=== PATIENT | female | born 1970 | race Caucasian/White ===

== ENCOUNTER 2017-11-04 14:59 | Emergency (ER) | payer OTHER, MEDICAID, SELFPAY ==
[2017-11-04 15:08] VITALS: BP 132/102; PULSE 90; RESP 20; TEMP 36.5; O2SAT 100; BMI 24.7
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
== END 2017-11-04 16:08 | disposition home or self-care (01) ==
PROVIDERS: Emergency Provider Emergency Medicine; PCP Family Medicine
DX: S01.81XA Laceration without foreign body of other part of head, initial encounter (principal); V19 Pedal cycle rider injured in other and unspecified transport accidents
CPT/HCPCS: 12013; 70110; 99283

== ENCOUNTER 2018-09-22 15:09 | Emergency (ER) | payer OTHER, MEDICAID, SELFPAY ==
[2018-09-22 15:11] VITALS: BP 124/78; PULSE 95; RESP 21; TEMP 37.4; O2SAT 97; BMI 23.5
--- NOTE | 2018-09-22 15:17 | DI.RAD.S_ITS ---
PROCEDURE: XR ELBOW RT MIN 3V INDICATIONS: pain with movement TECHNIQUE: 3 views of the elbow were acquired. COMPARISON: None. FINDINGS: Bones: No fractures or dislocations. No suspicious bony lesions. No significant degenerative changes. Soft tissues: No elbow joint effusion. No suspicious soft tissue calcifications. IMPRESSION: No acute osseous abnormality of the right elbow. Dictated by: Naveen Wild M.D. on 09/22/2018 at 15:50 Approved by: Naveen Wild M.D. on 09/22/2018 at 15:53
--- NOTE | 2018-09-22 16:19 | ED.EXTPRO ---
HPI - Extremity Problem General Chief complaint: Extremity Problem,Nontraumatic Stated complaint: RT SHE PAIN Time Seen by Provider: 09/22/18 16:11 Source: patient and old records reviewed Mode of arrival: ambulatory Limitations: no limitations History of Present Illness HPI Narrative: This is a 48-year-old female who comes in with complaint of right elbow/shoulder pain. 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 She has a history of a rotator cuff injury about 15 years ago and states that she never actually did surgery although she was recommended 2. Patient states her pain has not been controlled with oral ibuprofen. Patient is not having any weakness, no tingling or numbness but has quite a bit of discomfort extending from the shoulder down the arm. Patient has not had any bruising or other skin color changes. No redness or swelling. she does not have any other injuries elsewhere. Related Data Home Medications Medication Instructions Recorded Confirmed ferrous gluconate #0 04/27/17 potassium chloride [Klor-Con 8] #0 04/27/17 Previous Rx's Medication Instructions Recorded meloxicam [Mobic] 7.5 mg PO BID #10 tab 09/22/18 Allergies Allergy/AdvReac Type Severity Reaction Status Date / Time morphine [MORPHINE] Allergy Unknown ITCHING Verified 09/22/18 16:39 Review of Systems Review of Systems ROS Unobtainable: All systems reviewed & are unremarkable except as noted in HPI and below Constitutional Denies chills and Denies fever(s) Cardiovascular Denies chest pain, Denies edema and Denies dyspnea Respiratory Denies chest congestion and Denies dyspnea Gastrointestinal Gastrointestinal: Denies nausea and Denies vomiting Musculoskeletal Reports as per HPI, Reports arthralgias (Right shoulder, elbow), Denies joint swelling, Reports limited range of motion (Second pain), Denies numbness, Denies stiffness and Denies tingling Integumentary/Breasts Denies erythema, Denies rash and Denies unusual bruising Neurologic Denies numbness and Denies tingling PFSH Social History Smoking Status: Current every day smoker Social History Smoking Status: Current every day smoker Exam Narrative Exam Narrative: GENERAL: Alert and oriented x three, well-nourished, well-appearing female. HEENT: Head normocephalic, atraumatic, EOMI, pupils reactive, face symmetric, moist mucous membranes NECK: Supple, full range of motion, no vertebral tenderness CARDIOVASCULAR: Regular rate and rhythm without murmurs, rubs or gallops. RESPIRATORY: Breath sounds equal bilaterally, no wheezes rales or rhonchi. ABDOMEN: Soft, nontender. Normoactive bowel sounds all 4 quadrants. No guarding or rebound, rigidity, no mass EXTREMITIES: Normal range of motion, no clubbing or edema. 2+ radial pulse multiple right. Patient does not have any clear bony tenderness. Patient does not have any swelling and right versus left extremity. 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 She has cap refill less than 2 seconds in all 5 fingers. No bruising, no erythema. She has full range of motion of her wrist and elbow. Patient has range of motion in her shoulder as well. She has some tenderness over the AC region of the shoulder. Patient does not have any warmth, erythema or redness. 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 Neurovascularly intact NEUROLOGICAL: Cranial nerves II through XII grossly intact. Moving all extremities SKIN: Warm, dry, no petechiae, no rashes or lesions. Initial Vital Signs Initial Vital Signs: Vital Signs Temperature 99.3 F 09/22/18 15:11 Pulse Rate 95 H 09/22/18 15:11 Respiratory Rate 21 09/22/18 15:11 Blood Pressure 124/78 09/22/18 15:11 Pulse Oximetry 97 09/22/18 15:11 Course Orders Ordered: ED Orders 09/22/18 15:17 XR elbow RT min 3V Stat Discontinued Medications Ketorolac Tromethamine (Toradol) 60 mg IM NOW ONE Stop: 09/22/18 16:30 Last Admin: 09/22/18 16:39 Dose: 30 mg Vital Signs - 8 hr 09/22/18 15:11 09/22/18 16:49 09/22/18 16:52 Temperature 99.3 F Pulse Rate 95 H 72 Pulse Rate [Right Radial] 72 Respiratory Rate 21 18 Blood Pressure 124/78 Blood Pressure [Left Arm] 127/72 Pulse Oximetry 97 98 MDM - Extremity (Nontraumatic) Imaging Data right elbow xray: Radiologist's impression: [address] [address] XRay Report Signed Patient: Dorothy Mayers LMR#: [id number] : 1970Acct:[id number] Age/Sex: 48 / FDate of Service: 09/22/18 Loc: ED Accession Number: [id number] Procedure: XR elbow RT min 3V Ordering Provider: Fernanda Ivey D.O. PROCEDURE: XR ELBOW RT MIN 3V INDICATIONS: pain with movement TECHNIQUE: 3 views of the elbow were acquired. COMPARISON: None. FINDINGS: Bones: No fractures or dislocations. No suspicious bony lesions. No significant degenerative changes. Soft tissues: No elbow joint effusion. No suspicious soft tissue calcifications. IMPRESSION: No acute osseous abnormality of the right elbow. Dictated by: Naveen Wild M.D. on 09/22/2018 at 15:50 Approved by: Naveen Wild M.D. on 09/22/2018 at 15:53 MDM Narrative Medical decision making narrative: Patient's x-ray of her right elbow is negative. Patient has some mild tenderness to the AC but she has normal physical exam. Discussed with patient initially she was asking for an x-ray because she is concerned about rotator cuff tear being re-injured but we discussed that an x-ray will not exclude this or give us any definitive information the patient then deferred x-ray. She does have follow-up with Orthopedic surgery. Patient and I discussed doing a sling for short period of time as well as NSAIDs. Has an ice and/or heat. Patient is comfortable with the plan. Discharge Plan Departure Patient Disposition: Home Clinical Impression: Arm pain, right Discharge Date/Time: 09/22/18 16:54 Interventions: ED Discharge Assessment Last Done: 09/22/18 16:52 Instructions: DI for Arm Pain Activity Restrictions/Additional Instructions: Follow-up with your orthopedic surgeon in the next week for recheck. Call for an appointment. If you are using the sling, you need to make sure that your continuing to move your shoulder through its range of motion several times daily or you can get frozen shoulder. You may continue Tylenol up to a 1000 mg every 8 hours as needed. You may take this with Mobic 1 tablet every 12 hours as needed for pain. Elevated affected body part to decrease swelling. OK to use ice pack on the affected body part. Use for 15-20 minutes each time, for 5-6x per day. If you develop worsening pain, numbness, tingling, discoloration of the affected body part, loosen sling, and either see your doctor for an urgent re-assessment, or return to the Emergency Department. Return to the Emergency Department for any new or worsening symptoms. Prescriptions: New meloxicam [Mobic] 7.5 mg tablet 7.5 mg PO BID Qty: 10 RF: 0 No Action potassium chloride [Klor-Con 8] 8 MEQ tablet extended release Qty: 0 RF: 0 ferrous gluconate 236 MG tablet Qty: 0 RF: 0 Referrals: Vidhi Anderson MD [Primary Care Provider] -
--- NOTE | 2018-09-22 16:38 | ED_ITS ---
HPI - Extremity Problem General Chief complaint: Extremity Problem,Nontraumatic Stated complaint: RT SHE PAIN Time Seen by Provider: 09/22/18 16:11 Source: patient and old records reviewed Mode of arrival: ambulatory Limitations: no limitations History of Present Illness HPI Narrative: This is a 48-year-old female who comes in with complaint of right elbow/shoulder pain. 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 She has a history of a rotator cuff injury about 15 years ago and states that she never actually did surgery although she was recommended 2. Patient states her pain has not been controlled with oral ibuprofen. Patient is not having any weakness, no tingling or numbness but has quite a bit of discomfort extending from the shoulder down the arm. Patient has not had any bruising or other skin color changes. No redness or swelling. she does not have any other injuries elsewhere. Related Data Home Medications Medication Instructions Recorded Confirmed ferrous gluconate #0 04/27/17 potassium chloride [Klor-Con 8] #0 04/27/17 Previous Rx's Medication Instructions Recorded meloxicam [Mobic] 7.5 mg PO BID #10 tab 09/22/18 Allergies Allergy/AdvReac Type Severity Reaction Status Date / Time morphine [MORPHINE] Allergy Unknown ITCHING Verified 09/22/18 16:39 Review of Systems Review of Systems ROS Unobtainable: All systems reviewed & are unremarkable except as noted in HPI and below Constitutional Denies chills and Denies fever(s) Cardiovascular Denies chest pain, Denies edema and Denies dyspnea Respiratory Denies chest congestion and Denies dyspnea Gastrointestinal Gastrointestinal: Denies nausea and Denies vomiting Musculoskeletal Reports as per HPI, Reports arthralgias (Right shoulder, elbow), Denies joint swelling, Reports limited range of motion (Second pain), Denies numbness, Denies stiffness and Denies tingling Integumentary/Breasts Denies erythema, Denies rash and Denies unusual bruising Neurologic Denies numbness and Denies tingling PFSH Social History Smoking Status: Current every day smoker Social History Smoking Status: Current every day smoker Exam Narrative Exam Narrative: GENERAL: Alert and oriented x three, well-nourished, well- appearing female. HEENT: Head normocephalic, atraumatic, EOMI, pupils reactive, face symmetric, moist mucous membranes NECK: Supple, full range of motion, no vertebral tenderness CARDIOVASCULAR: Regular rate and rhythm without murmurs, rubs or gallops. RESPIRATORY: Breath sounds equal bilaterally, no wheezes rales or rhonchi. ABDOMEN: Soft, nontender. Normoactive bowel sounds all 4 quadrants. No guarding or rebound, rigidity, no mass EXTREMITIES: Normal range of motion, no clubbing or edema. 2+ radial pulse multiple right. Patient does not have any clear bony tenderness. Patient does not have any swelling and right versus left extremity. 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 She has cap refill less than 2 seconds in all 5 fingers. No bruising, no erythema. She has full range of motion of her wrist and elbow. Patient has range of motion in her shoulder as well. She has some tenderness over the AC region of the shoulder. Patient does not have any warmth, erythema or redness. 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 Neurovascularly intact NEUROLOGICAL: Cranial nerves II through XII grossly intact. Moving all extremities SKIN: Warm, dry, no petechiae, no rashes or lesions. Initial Vital Signs Initial Vital Signs: Vital Signs Temperature 99.3 F 09/22/18 15:11 Pulse Rate 95 H 09/22/18 15:11 Respiratory Rate 21 09/22/18 15:11 Blood Pressure 124/78 09/22/18 15:11 Pulse Oximetry 97 09/22/18 15:11 Course Orders Ordered: ED Orders 09/22/18 15:17 XR elbow RT min 3V Stat Discontinued Medications Ketorolac Tromethamine (Toradol) 60 mg IM NOW ONE Stop: 09/22/18 16:30 Last Admin: 09/22/18 16:39 Dose: 30 mg Vital Signs - 8 hr 09/22/18 15:11 09/22/18 16:49 09/22/18 16:52 Temperature 99.3 F Pulse Rate 95 H 72 Pulse Rate [Right Radial] 72 Respiratory Rate 21 18 Blood Pressure 124/78 Blood Pressure [Left Arm] 127/72 Pulse Oximetry 97 98 MDM - Extremity (Nontraumatic) Imaging Data right elbow xray: Radiologist's impression: [address] [address] XRay Report Signed Patient: Dorothy Mayers LMR#: [id number] : 1970Acct:[id number] Age/Sex: 48 / FDate of Service: 09/22/18 Loc: ED Accession Number: [id number] Procedure: XR elbow RT min 3V Ordering Provider: Frenanda Ivey D.O. PROCEDURE: XR ELBOW RT MIN 3V INDICATIONS: pain with movement TECHNIQUE: 3 views of the elbow were acquired. COMPARISON: None. FINDINGS: Bones: No fractures or dislocations. No suspicious bony lesions. No significant degenerative changes. Soft tissues: No elbow joint effusion. No suspicious soft tissue calcifications. IMPRESSION: No acute osseous abnormality of the right elbow. Dictated by: Naveen Wild M.D. on 09/22/2018 at 15:50 Approved by: Naveen Wild M.D. on 09/22/2018 at 15:53 MDM Narrative Medical decision making narrative: Patient's x-ray of her right elbow is negative. Patient has some mild tenderness to the AC but she has normal physical exam. Discussed with patient initially she was asking for an x-ray because she is concerned about rotator cuff tear being re-injured but we discussed that an x-ray will not exclude this or give us any definitive information the patient then deferred x-ray. She does have follow-up with Orthopedic surgery. Patient and I discussed doing a sling for short period of time as well as NSAIDs. Has an ice and/or heat. Patient is comfortable with the plan. Discharge Plan Departure Patient Disposition: Home Clinical Impression: Arm pain, right Discharge Date/Time: 09/22/18 16:54 Interventions: ED Discharge Assessment Last Done: 09/22/18 16:52 Instructions: DI for Arm Pain Activity Restrictions/Additional Instructions: Follow-up with your orthopedic surgeon in the next week for recheck. Call for an appointment. If you are using the sling, you need to make sure that your continuing to move your shoulder through its range of motion several times daily or you can get frozen shoulder. You may continue Tylenol up to a 1000 mg every 8 hours as needed. You may take this with Mobic 1 tablet every 12 hours as needed for pain. Elevated affected body part to decrease swelling. OK to use ice pack on the affected body part. Use for 15-20 minutes each time, for 5-6x per day. If you develop worsening pain, numbness, tingling, discoloration of the affected body part, loosen sling, and either see your doctor for an urgent re-assessment, or return to the Emergency Department. Return to the Emergency Department for any new or worsening symptoms. Prescriptions: New meloxicam [Mobic] 7.5 mg tablet 7.5 mg PO BID Qty: 10 RF: 0 No Action potassium chloride [Klor-Con 8] 8 MEQ tablet extended release Qty: 0 RF: 0 ferrous gluconate 236 MG tablet Qty: 0 RF: 0 Referrals: Vidhi Anderson MD [Primary Care Provider] -
[2018-09-22] MEDS: KETOROLAC 60 MG/2 ML VIAL IM (16:39)
[2018-09-22 16:49] VITALS: PULSE 72
[2018-09-22 16:52] VITALS: BP 127/72; PULSE 72; RESP 18; O2SAT 98
== END 2018-09-22 16:54 | disposition home or self-care (01) ==
PROVIDERS: Emergency Provider Emergency Medicine; PCP Family Medicine
DX: M25.521 Pain in right elbow (principal); M25.511 Pain in right shoulder
CPT/HCPCS: 73080; 96372; 99282; 99283; J1885

== ENCOUNTER 2019-07-03 13:14 | Emergency (ER) | payer OTHER, MEDICAID, SELFPAY ==
[2019-07-03 13:23] VITALS: BP 108/68; PULSE 79; RESP 20; TEMP 36.6; O2SAT 97
[2019-07-03 13:37] VITALS: BP 110/64; PULSE 66; RESP 16; TEMP 36.6; O2SAT 100
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
== END 2019-07-03 14:11 | disposition home or self-care (01) ==
PROVIDERS: Emergency Provider Nurse Practitioner Family; PCP Family Medicine
DX: S60.512A Abrasion of left hand, initial encounter (principal); V18.2XXA Unspecified pedal cyclist injured in noncollision transport accident in nontraffic accident, initial encounter
CPT/HCPCS: 99282

== ENCOUNTER 2019-07-09 11:58 | Emergency (ER) | payer OTHER, MEDICAID, SELFPAY ==
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
[2019-07-09 12:22] VITALS: BP 114/78; PULSE 87; RESP 20; O2SAT 98
[2019-07-09 12:26] VITALS: PULSE 89
[2019-07-09] MEDS: cephALEXin 250 MG CAPSULE 500 MG PO (13:05)
[2019-07-09] MEDS: TRIMETH/SULFA 160/800 (DS) TABLET 1 TAB PO (13:05)
[2019-07-09] MEDS: IBUPROFEN 400 MG TABLET 800 MG PO (13:09)
[2019-07-09] MEDS: ACETAMINOPHEN 325 MG TABLET 975 MG PO (13:09)
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
== END 2019-07-09 13:35 | disposition home or self-care (01) ==
PROVIDERS: Emergency Provider Nurse Practitioner Family; PCP Family Medicine
DX: S50.312A Abrasion of left elbow, initial encounter (principal); M25.522 Pain in left elbow; L03.116 Cellulitis of left lower limb
CPT/HCPCS: 73080; 99283

== ENCOUNTER 2022-01-11 16:56 | Emergency (ER) | payer OTHER, MEDICAID, SELFPAY ==
[2022-01-11] VITALS (25 sets, daily range): BP systolic 113–155; BP diastolic 68–98; PULSE 69–99; RESP 7–44; TEMP 36.3; O2SAT 85–100
--- NOTE | 2022-01-11 16:55 | DI.CT.S_ITS ---
PROCEDURE: CT HEAD/BRAIN WO CON INDICATIONS: head trauma, seizure TECHNIQUE: Noncontrast 4.5 mm thick angled axial sections acquired from the foramen magnum to the vertex, with coronal and sagittal reformats. For radiation dose reduction, the following was used: automated exposure control, adjustment of mA and/or kV according to patient size. COMPARISON: [facility], CT, CT CHEST ABD PEL W CON, 01/11/2022, 17:05. [facility], CT, CT CERVICAL SPINE WO CON, 01/11/2022, 17:00. [facility], CT, CT FACIAL BONES WO CON, 01/11/2022, 17:00. FINDINGS: Image quality: Excellent. CSF spaces: Basal cisterns are patent. No extra-axial fluid collections. Ventricles are normal in size and shape. Brain: Irregular extra-axial hemorrhage can be seen on the right, measuring up to 5 mm in thickness. No midline shift. No intracranial masses. Ospina-white matter interface is normal. Skull and face: There is a mildly displaced left orbital wall fracture seen. A mild amount intraorbital gas can be seen. There is prominent left periorbital soft tissue swelling. Soft tissue swelling is also seen involving the left lateral scalp. Sinuses: Visualized sinuses and mastoids are clear. IMPRESSION: Extra-axial hemorrhage seen on the right, which is attributed to subdural hemorrhage measuring up to 5 mm in thickness. Fractures are seen involving the lateral wall of the left orbit, with associated left periorbital soft tissue swelling. There is intramedullary gas seen, yet without significant interval hemorrhage. Ophthalmology consultation is recommended. Additional soft tissue swelling can be seen laterally and on the left. Note: Critical finding of acute hemorrhage discussed by telephone with Dr. Smyth at 4:31 p.m. [place] time on January 11, 2022. Dictated by: Luis Lepe M.D. on 01/11/2022 at 16:33 Approved by: Luis Lepe M.D. on 01/11/2022 at 16:36
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
--- NOTE | 2022-01-11 16:56 | DI.CT.S_ITS ---
PROCEDURE: CT FACIAL BONES WO CON INDICATIONS: trauma TECHNIQUE: Noncontrast 2.5 mm thick axial images acquired from the mandible through the frontal sinuses, with coronal and sagittal reformatting. For radiation dose reduction, the following was used: automated exposure control, adjustment of mA and/or kV according to patient size. COMPARISON: [facility], CT, CT CERVICAL SPINE WO CON, 01/11/2022, 17:00. [facility], CT, CT HEAD/BRAIN WO CON, 01/11/2022, 17:00. FINDINGS: Image quality: Excellent. Bones and teeth: Mildly displaced fractures are seen involving the lateral wall of the left orbit. There is a small amount of intraorbital gas seen. There is a mildly displaced left 2nd medic are chip fracture. Sinus beckman show no fracture or deformity. Nasal bones and septum are intact. Visualized portions of the mandible demonstrate no fractures or subluxation. Pterygoid plates are intact. Visualized portions of the skull base and auditory canals are intact. Sinuses: Paranasal sinuses are aerated, without fluid levels, mucosal thickening, or mucoceles. Mastoid air cells are aerated. Soft tissues: Left periorbital soft tissue swelling is seen. Soft tissue swelling is also seen involving the left lateral scalp. There is a small amount of intracranial hemorrhage seen on the right, which is attributed to mild subdural hemorrhage. Vascular: Visualized vascular structures appear normal in the absence of contrast. Bony vascular foramina and canals are intact. IMPRESSION: Fractures are seen of the lateral wall of the left orbit. Intraorbital gas is seen. No significant postseptal hemorrhage can be seen. Ophthalmology consultation is recommended. There is a mildly displaced fracture seen involving the left zygomatic arch. Left periorbital soft tissue swelling is seen. A small amount of right extra-axial hemorrhage is seen, which is attributed to subdural hemorrhage please see the accompanying head CT report. Note: Critical finding of intracranial hemorrhage discussed by telephone with Dr. Smyth at 4:31 p.m. [place] time on January 11, 2022. Dictated by: Luis Lepe M.D. on 01/11/2022 at 16:26 Approved by: Luis Lepe M.D. on 01/11/2022 at 16:33
--- NOTE | 2022-01-11 17:01 | DI.CT.S_ITS ---
PROCEDURE: CT CHEST ABD PEL W CON INDICATIONS: trauma seizure TECHNIQUE: After the administration of intravenous contrast, 5 mm thick sections acquired from the lung apices to the symphysis. 2.5 mm thick coronal and sagittal reformats were acquired. Additional 7 mm thick coronal maximum intensity projection (MIP) reformats acquired through the lungs. Optional 10-minute delayed imaging may be performed from the kidneys to the bladder. For radiation dose reduction, the following was used: automated exposure control, adjustment of mA and/or kV according to patient size. COMPARISON: [facility], CT, CT CERVICAL SPINE WO CON, 01/11/2022, 17:00. [facility], CT, CT HEAD/BRAIN WO CON, 01/11/2022, 17:00. [facility], CT, CT FACIAL BONES WO CON, 01/11/2022, 17:00. FINDINGS: Image quality: Limited by contrast bolus, with a failed IV at the time of the contrast injection. This examination is limited by involuntary motion artifact. CHEST: Lungs: No pulmonary contusions or lacerations. Mild apparent dependent atelectasis can be seen. No acute airspace opacities. No pneumothorax or hemothorax. Central and peripheral airways appear patent and normal in caliber. Mediastinum: No mediastinal hematomas. Heart size is normal. No pericardial effusion. Thoracic aorta and pulmonary arteries demonstrate normal size and enhancement. No mediastinal or hilar adenopathy. Esophagus is normal in caliber. No hiatal hernia. Chest wall: No rib fractures. No subcutaneous emphysema. No axillary or supraclavicular adenopathy. Thyroid gland demonstrates no significant abnormality. ABDOMEN: Solid organs: Liver is normal in size and enhancement, without lacerations. Gallbladder has been removed. Biliary system is non-dilated. Pancreas enhances normally, without transection. Spleen is normal in size and enhancement, without lacerations. No adrenal hematomas. Both kidneys enhance normally, without hydronephrosis or lacerations. Peritoneum and bowel: No free fluid or air. Unenhanced bowel loops demonstrate normal wall thickness and caliber. A normal appendix is incidentally noted. Nodes and vessels: No retroperitoneal or mesenteric adenopathy. Aorta and inferior vena cava are normal in size and enhancement. Miscellaneous: There is a fat containing hernia seen involving the left anterior abdominal wall near the midline. PELVIS: Genitourinary: Bladder wall thickness is normal. Uterine fibroids are seen. There is a 4 cm left renal cyst seen. Miscellaneous: No inguinal hernias or adenopathy. Bones: Pelvic ring and hip joints appear intact. No vertebral compression fractures. Degenerative changes are seen throughout, including involving the visualized lower cervical spine and the lower lumbar spine. S-shaped scoliotic curvature is seen. IMPRESSION: No pearl acute posttraumatic abnormality is identified. There is a 4 cm left ovarian cyst seen. In a patient of this age, this is almost certainly benign. If it would be clinically appropriate, a followup pelvic ultrasound could be considered in 6 weeks to assure resolution/ improvement. Incidental note is made of: Cholecystectomy Fat containing anterior abdominal wall hernia, just to the left of the midline Uterine fibroids S shaped scoliosis Dictated by: Luis Lepe M.D. on 01/11/2022 at 16:54 Approved by: Luis Lepe M.D. on 01/11/2022 at 16:57
[2022-01-11] MEDS: diazePAM 10 MG/2 ML SYRINGE (17:15)
--- NOTE | 2022-01-11 17:28 | PC.NURSE ---
Attempted to call sister and father with numbers on file and both numbers are out of service.
[2022-01-11 17:35] LABS: Prothrombin Time 11.7 SECONDS (10.1-12.7)
[2022-01-11 17:37] LABS: Add Manual Diff / Slide Review NO; Basophils Absolute Auto 100 /uL (0-100); Basophils Percent Auto 0.9 % (0-2); Eosinophils Absolute Auto 100 /uL (0-450); Eosinophils Percent Auto 1.8 % (2-4); Hematocrit 35.2 % (36-46); Hemoglobin 11.7 g/dL (12.0-16.0); Lymphocytes Absolute Auto 2100 /uL (1100-4500); Lymphocytes Percent Auto 26.8 % (25-40); Mean Corpuscular HGB Conc 33.1 % (30-36); Mean Corpuscular Hemoglobin 27.7 PG (26-34); Mean Corpuscular Volume 83.6 fL (80-100); Monocytes Absolute Auto 700 /uL (0-900); Monocytes Percent Auto 8.5 % (3-14); Neutrophils Absolute Auto 4900 /uL (1500-7000); Platelet Count 342 X10^3/uL (150-400); Red Blood Cell Count 4.21 X10^6/uL (4.0-5.2); White Blood Cell Count 7.8 X10^3/uL (4.5-11.0)
[2022-01-11 17:38] LABS: PTT Partial Thromboplastin Tim 29 SECONDS (26.4-36.2)
--- NOTE | 2022-01-11 17:40 | ED.TRAUMA ---
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 Genitourinary:? Bladder wall thickness is normal.? Uterine fibroids are seen.? There is a 4 cm left renal cyst seen. ? Miscellaneous:? No inguinal hernias or adenopathy.? ? Bones:? Pelvic ring and hip joints appear intact.? No vertebral compression fractures.? Degenerative changes are seen throughout, including involving the visualized lower cervical spine and the lower lumbar spine.? S-shaped scoliotic curvature is seen. ? ? IMPRESSION:? No pearl acute posttraumatic abnormality is identified. ? There is a 4 cm left ovarian cyst seen. In a patient of this age, this is almost certainly benign. If it would be clinically appropriate, a followup pelvic ultrasound could be considered in 6 weeks to assure resolution/ improvement.? Incidental note is made of: Cholecystectomy Fat containing anterior abdominal wall hernia, just to the left of the midline Uterine fibroids S shaped scoliosis ? Dictated by: Luis Lepe M.D. on 01/11/2022 at 16:54 ? ? Approved by: Luis Lepe M.D. on 01/11/2022 at 16:57 ? CX 2: Radiologist's Impression: XRay Report Signed Patient: Dorothy Mayers MR#: [id number] : 1970 Acct:[id number] Age/Sex: 51 / F Date of Service: 01/11/22 Loc: ED Accession Number: [id number] ?? Procedure: XR chest 1V Ordering Provider: Rosaura Ayala PROCEDURE:? XR CHEST 1V ? INDICATIONS:? ET and OG tube placement ? TECHNIQUE:? One view of the chest was acquired.? ? COMPARISON:? None. ? FINDINGS:? ? Surgical changes and devices:? Endotracheal tube tip in good position 5 cm above the erica.? Orogastric tube present stomach.? No pneumothorax. ? Lungs and pleura:? Lungs are clear.? No pleural effusions or pneumothorax.? ? Mediastinum:? Mediastinal contours appear normal.? Heart size is normal.? ? Bones and chest wall:? No suspicious bony lesions.? Overlying soft tissues appear unremarkable.? ? IMPRESSION:? ? Endotracheal and orogastric tube in good position.? No pneumothorax. ? ? ? Approved by: Fabricio Clemente M.D. on 01/11/2022 at 18:03? ECG Data Interpretation: Normal sinus rhythm rate 83 NJ interval 160 QRS [address] changes MDM Narrative Medical decision making narrative: Patient had initial seizure in ambulance [place] with EMS she was immediately taken to CT. She is found to have small subdural hematoma with no midline shift. She returned to CT and quickly had another seizure. She initially was slightly postictal responding to pain however after the 2nd seizure she was intubated for airway protection. He is given Keppra for seizure. She is sedated with fentanyl and Ativan. Dr. Mabry ED attending at [facility] kindly accepts admission After patient left her daughter did call. She is given information and updated that patient was transferred to [place] Discharge Plan Departure Patient Disposition: [facility] Clinical Impression: Acute subdural hematoma, Seizure after head injury Prescriptions: No Action cephalexin 500 mg capsule 500 mg PO QID Qty: 40 0RF sulfamethoxazole-trimethoprim [Bactrim DS] 800-160 mg tablet 1 tab PO BID Qty: 14 0RF Referrals: Vidhi Anderson MD [Primary Care Provider] -
[2022-01-11] MEDS: levETIRAcetam 1,000 MG in SODIUM CHLORIDE 0.9% 100 ML 440 MG IV (17:43)
[2022-01-11 17:44] LABS: Creatine Kinase 90 U/L (30-135)
[2022-01-11] MEDS: diazePAM 10 MG/2 ML SYRINGE 5 MG IV (17:44)
[2022-01-11 17:46] LABS: Alanine Aminotransferase 16 IU/L (<35); Albumin 3.9 g/dL (3.5-5.0); Albumin Globulin Ratio 1.4 (1.0-2.8); Alkaline Phosphatase 82 U/L (38-126); Aspartate Aminotransferase 28 IU/L (14-36); Bilirubin Total 1.1 mg/dL (0.2-1.3); Blood Urea Nitrogen 13 mg/dL (7-17); Calcium 8.3 mg/dL (8.4-10.2); Carbon Dioxide 23 mmol/L (22-32); Chloride 105 mmol/L (98-107); Estimated Glomerular Filt Rate > 60 mL/min (>60); Ethanol (ETOH) < 10 mg/dL; Globulin 2.7 g/dL (1.7-4.1); Glucose 128 mg/dL (70-100); HEMOLYSIS 22 (0-50); Lipase 103 U/L (23-300); Potassium 3.5 mmol/L (3.4-5.1); Sodium 136 mmol/L (137-145); Total Protein 6.6 g/dL (6.3-8.2)
[2022-01-11] MEDS: KETAMINE 500 MG/5 ML INJ (17:46)
[2022-01-11] MEDS: ROCURONIUM 100 MG/10 ML VIAL 150 MG IV (17:47)
--- NOTE | 2022-01-11 17:48 | DI.RAD.S_ITS ---
PROCEDURE: XR CHEST 1V INDICATIONS: ET and OG tube placement TECHNIQUE: One view of the chest was acquired. COMPARISON: None. FINDINGS: Surgical changes and devices: Endotracheal tube tip in good position 5 cm above the erica. Orogastric tube present stomach. No pneumothorax. Lungs and pleura: Lungs are clear. No pleural effusions or pneumothorax. Mediastinum: Mediastinal contours appear normal. Heart size is normal. Bones and chest wall: No suspicious bony lesions. Overlying soft tissues appear unremarkable. IMPRESSION: Endotracheal and orogastric tube in good position. No pneumothorax. Approved by: Fabricio Clemente M.D. on 01/11/2022 at 18:03
[2022-01-11 17:50] LABS: COVID19 -Nasal RAPID Negative (Negative)
[2022-01-11 17:57] LABS: Troponin I < 0.012 ng/mL (0.01-0.034)
[2022-01-11] MEDS: SODIUM CHLORIDE 0.9% 1,000 ML 1000 ML IV (18:07)
[2022-01-11 18:09] LABS: Pregnancy Test Serum,Qual Negative (Negative)
[2022-01-11] MEDS: fentaNYL 1,000 MCG in DEXTROSE 5% IN WATER 230 ML 23.814 MCG IV (18:15)
[2022-01-11] MEDS: LORazepam 20 MG in SODIUM CHLORIDE 0.9% 100 ML 5.239 MG IV (18:18)
[2022-01-11 18:23] LABS: Appearance Urine UA CLEAR; Bilirubin Urine UA NEGATIVE (NEGATIVE); Color Urine UA YELLOW; Glucose Urine UA NEGATIVE (Negative); Ketones Urine UA NEGATIVE (NEGATIVE); Leukocyte Esterase Urine UA NEGATIVE (NEGATIVE); Nitrite Urine UA NEGATIVE (Negative); Occult Blood Urine UA 1+ (Negative); Protein Urine UA 1+ (Negative); Specific Gravity Urine UA 1.015 (1.000-1.035); Urobilinogen Urine UA 0.2 E.U./dL (0.2)
--- NOTE | 2022-01-11 18:24 | CM.SWNOTE ---
MONEY ORDER CLERK Note Per ED provider recommendation, MONEY ORDER CLERK calls [employer] dispatch to attempt to notify and contact patient's family. Kiki Leyva, CRUTCH [employer]ER
[2022-01-11 18:29] LABS: Ur Creatinine Normal (Normal); Ur Specific Gravity Normal (Normal); Urine Tetrahydrocannabinol Positive (Negative); Urine pH Normal (Normal)
[2022-01-11 18:30] LABS: UR Morphine/Opiate cutoff 300 Negative (Negative); Urine Amphetamines Positive (Negative); Urine Barbiturates Negative (Negative); Urine Benzodiazepines Negative (Negative); Urine Cocaine Negative (Negative); Urine MDMA Positive (Negative); Urine Methadone Negative (Negative); Urine Methamphetamines Positive (Negative); Urine Oxycodone Negative (Negative); Urine Phencyclidine Negative (Negative); Urine Tricyclic Antidepressant Positive (Negative)
[2022-01-11 18:33] LABS: RBC Urine 1-5/HPF (0-5/HPF); WBC Urine 5-10/HPF (0-5/HPF)
[2022-01-11 18:34] LABS: Amorphous Sediment Urine 1+; Bacteria Urine Occasional (0-1); Culture Indicated Urine Cult Not Indicated; Squamous Epithelial Cell Urine 10-30 /HPF (0-5/HPF)
[2022-01-11 19:50] LABS: HCO3 ABG 24 mmol/L (22-26); Oxygen Saturation ABG 94 % (95-100); PCO2 ABG 50.1 mmHg (35-45); PO2 ABG 81 mmHg (80-100); TCO2 ABG 25 mmol/L (21-31); pH ABG 7.28 (7.35-7.45)
[2022-01-11 19:52] LABS: Fractionated Inspired Oxygen 80
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
== END 2022-01-11 19:00 | disposition short-term general hospital (02) ==
PROVIDERS: Emergency Provider Emergency Medicine; PCP Family Medicine
DX: S06.5X1A Traumatic subdural hemorrhage with loss of consciousness of 30 minutes or less, initial encounter (principal); R56.1 Post traumatic seizures; V17.4XXA Pedal cycle driver injured in collision with fixed or stationary object in traffic accident, initial encounter; Z20.822 Contact with and (suspected) exposure to COVID-19
CPT/HCPCS: 31500; 36415; 36600; 70450; 70486; 71045; 71260; 72125; 74177; 80053; 80305; 80320; 81001; 82550; 82805; 83690; 84484; 84703; 85025; 85610; 85730; 87635; 93005; 93010; 94002; 94799; 96365; 96367; 96368; 96375; 96376; 99285; 99291; 99292; C9803; G0390; J1953; J2060; J3010; J3360; Q9967

== ENCOUNTER 2022-07-22 10:36 | Emergency (ER) | payer OTHER, MEDICAID, SELFPAY ==
[2022-01-11 18:08] VITALS: PULSE 80; RESP 16; O2SAT 100
[2022-07-22 10:47] VITALS: BP 131/85; PULSE 85; RESP 15; TEMP 36.5; O2SAT 100; BMI 23.5
--- NOTE | 2022-07-22 10:49 | DI.RAD.S_ITS ---
PROCEDURE: XR CHEST 2V INDICATIONS: cough and congestion 2 months TECHNIQUE: 2 views of the chest were acquired. COMPARISON: [facility], CR, XR CHEST 1V, 01/11/2022, 17:54. FINDINGS: Surgical changes and devices: None. Lungs and pleura: Lungs are slightly hyperinflated. There is minor bilateral perihilar bronchial wall thickening. No pleural effusions or pneumothorax. Mediastinum: Mediastinal contours are normal. Heart size is normal. Bones and chest wall: No suspicious bony abnormalities. Soft tissues appear unremarkable. IMPRESSION: 1. Slight hyperinflation and mild perihilar bronchial wall thickening suggesting reactive airways disease/asthma, or bronchitis. Dictated by: Anamaria Wilder M.D. on 07/22/2022 at 10:11 Approved by: Anamaria Wilder M.D. on 07/22/2022 at 10:12
[2022-07-22 11:34] LABS: Influenza A - CEPHEID Flu A NEGATIVE (NEGATIVE); Influenza B - CEPHEID Flu B NEGATIVE (NEGATIVE); Respiratory Syncytial Virus Negative (Negative)
[2022-07-22 11:35] LABS: COVID-19 CEPHEID 4-PLEX PCR Negative (Negative)
[2022-07-22] MEDS: predniSONE 20 MG TABLET 40 MG PO (13:43)
[2022-07-22] MEDS: AMOXICILLIN/CLAV 875/125 MG 1 TAB PO (13:43)
[2022-07-22] MEDS: DOXYCYCLINE HYCLATE 100 MG TABLET PO (13:43)
[2022-07-22 13:47] VITALS: BP 129/85; PULSE 80; RESP 22; O2SAT 100
[2022-07-22] MEDS: ALBUTEROL/IPRATROPIUM 3 ML AMPUL INH (13:48)
[2022-07-22] MEDS: ALBUTEROL HFA MDI 60 PUFF/8 GM INHALER INH (13:49)
[2022-07-22 13:53] VITALS: PULSE 73; RESP 20; O2SAT 97
--- NOTE | 2022-07-22 13:55 | ED_ITS ---
HPI - URI/Sore Throat <NONA Marquez - Last Filed: 07/22/22 14:21> General Chief Complaint: Upper Respiratory Symptoms Stated Complaint: feels like walking pneoumia or covid Time Seen by Provider: 07/22/22 13:30 Source: patient Mode of arrival: Ambulatory History of Present Illness HPI Narrative: This is a 51-year-old female presents to the emergency department complaining of shortness of breath and wheezing for the last 2 months with upper respiratory infections. She denies fever chills but states that she has not felt well. She is been coughing and feeling short of breath and she is out of her albuterol inhaler. She is an everyday smoker, denies swelling in her lower extremities, denies shortness of breath with exertion, just it is that it feels like asthma. She denies other symptoms like nausea, vomiting, chills, weakness, dysuria or productive cough. Related Data Previous Rx's Medication Instructions Recorded cephalexin 500 mg capsule 500 mg PO QID #40 caps 07/09/19 sulfamethoxazole 800 1 tab PO BID #14 tabs 07/09/19 mg-trimethoprim 160 mg tablet (Bactrim DS) albuterol sulfate 90 mcg/actuation 1 puff inhalation QID PRN 07/22/22 aerosol inhaler shortness of breath or wheezing #8.5 grams amoxicillin 875 mg-potassium 1 tab PO BID 5 days #10 tabs 07/22/22 clavulanate 125 mg tablet doxycycline hyclate 100 mg capsule 100 mg PO BID 5 days #10 caps 07/22/22 prednisone 20 mg tablet 40 mg PO BID 5 days #20 tabs 07/22/22 Allergies Allergy/AdvReac Type Severity Reaction Status Date / Time morphine [MORPHINE] Allergy Unknown ITCHING Verified 07/22/22 10:47 Review of Systems <NONA Marquez - Last Filed: 07/22/22 14:21> Review of Systems ROS Unobtainable: All systems reviewed & are unremarkable except as noted in HPI and below Patient History <NONA Marquez - Last Filed: 07/22/22 14:21> Social History Smoking Status: Current every day smoker Smoking Status: Current every day smoker alcohol intake frequency: holidays/special occasions only Substance Use Type: marijuana Exam <NONA Marquez Last Filed: 07/22/22 14:21> Narrative Exam Narrative: Reviewed vitals signs and nursing notes. General: cooperative, comfortable, patient lying on stretcher, wheezing HEENT: symmetrical facial expressions, moist mucous membranes Cardiovascular: regular rate and rhythm, no peripheral edema, warm extremities Respiratory: Patient has wheezes throughout with decreased air movement, without increased work of breathing without wheezing, stridor, or abnormal breath sounds. No retractions or tachypnea. Update, after DuoNeb, all wheezes, patient without respiratory distress hypoxia shortness of breath, tachypnea or increased respiratory effort. GI: abdomen soft, nontender to palpation, nondistended, without masses, rebound tenderness or exquisite tenderness with exam. MSK: moves all extremities, neurovascularly intact, no weakness, normal tone Skin: brisk capillary refill, without pallor or erythema Neuro: normal speech and cognition, A&O x3, ambulatory, clear speech Psych: mental status is grossly normal, congruent mood, normal affect, pleasant and cooperative Initial Vital Signs Initial Vital Signs: Vital Signs Temperature 97.7 F 07/22/22 10:47 Pulse Rate 85 07/22/22 10:47 Respiratory Rate 15 07/22/22 10:47 Blood Pressure 131/85 07/22/22 10:47 Pulse Oximetry 100 07/22/22 10:47 Oxygen Delivery Method 07/22/22 10:47 <Fernanda Ivey DO - Last Filed: 07/22/22 18:44> Initial Vital Signs Initial Vital Signs: Vital Signs Temperature 97.7 F 07/22/22 10:47 Pulse Rate 85 07/22/22 10:47 Respiratory Rate 15 07/22/22 10:47 Blood Pressure 131/85 07/22/22 10:47 Pulse Oximetry 100 07/22/22 10:47 Oxygen Delivery Method 07/22/22 10:47 Course <NONA Marquez - Last Filed: 07/22/22 14:21> Orders Ordered: ED Orders 07/22/22 10:49 XR chest 2V Stat 07/22/22 10:50 Covid-19 + FLU A/B + RSV - PCR Stat 07/22/22 13:30 RT Consult Eval and Treat NOW Discontinued Medications Albuterol (Albuterol Hfa Mdi 60 Puff/8 Gm Inhaler) 1 puff INH NOW ONE Stop: 07/22/22 13:34 Last Admin: 07/22/22 13:49 Dose: 1 puff Documented By: SAT Albuterol/Ipratropium (Albuterol/Ipratropium 3 Ml Ampul) 3 ml INH NOW ONE Stop: 07/22/22 13:31 Last Admin: 07/22/22 13:48 Dose: 3 ml Documented By: SAT Amoxicillin/Clavulanate Potassium (Amoxicillin/Clav 875/125 Mg) 1 tab PO NOW ONE Stop: 07/22/22 13:38 Last Admin: 07/22/22 13:43 Dose: 1 tab Documented By: AT Doxycycline Hyclate (Doxycycline Hyclate 100 Mg Tablet) 100 mg PO NOW ONE Stop: 07/22/22 13:38 Last Admin: 07/22/22 13:43 Dose: 100 mg Documented By: AT Prednisone (Prednisone 20 Mg Tablet) 40 mg PO NOW ONE Stop: 07/22/22 13:31 Last Admin: 07/22/22 13:43 Dose: 40 mg Documented By: AT Vital Signs Vital signs: Vital Signs - 8 hr 07/22/22 10:47 07/22/22 13:47 07/22/22 13:53 Temperature 97.7 F Pulse Rate 85 80 73 Respiratory Rate 15 22 20 Blood Pressure 131/85 129/85 Pulse Oximetry 100 100 97 Oxygen Delivery Method Room Air Room Air Room Air <Fernanda Ivey DO - Last Filed: 07/22/22 18:44> Orders Ordered: ED Orders 07/22/22 10:49 XR chest 2V Stat 07/22/22 10:50 Covid-19 + FLU A/B + RSV - PCR Stat 07/22/22 13:30 RT Consult Eval and Treat NOW Discontinued Medications Albuterol (Albuterol Hfa Mdi 60 Puff/8 Gm Inhaler) 1 puff INH NOW ONE Stop: 07/22/22 13:34 Last Admin: 07/22/22 13:49 Dose: 1 puff Documented By: SAT Albuterol/Ipratropium (Albuterol/Ipratropium 3 Ml Ampul) 3 ml INH NOW ONE Stop: 07/22/22 13:31 Last Admin: 07/22/22 13:48 Dose: 3 ml Documented By: SAT Amoxicillin/Clavulanate Potassium (Amoxicillin/Clav 875/125 Mg) 1 tab PO NOW ONE Stop: 07/22/22 13:38 Last Admin: 07/22/22 13:43 Dose: 1 tab Documented By: AT Doxycycline Hyclate (Doxycycline Hyclate 100 Mg Tablet) 100 mg PO NOW ONE Stop: 07/22/22 13:38 Last Admin: 07/22/22 13:43 Dose: 100 mg Documented By: AT Prednisone (Prednisone 20 Mg Tablet) 40 mg PO NOW ONE Stop: 07/22/22 13:31 Last Admin: 07/22/22 13:43 Dose: 40 mg Documented By: AT Vital Signs Vital signs: Vital Signs - 8 hr 07/22/22 10:47 07/22/22 13:47 07/22/22 13:53 Temperature 97.7 F Pulse Rate 85 80 73 Respiratory Rate 15 22 20 Blood Pressure 131/85 129/85 Pulse Oximetry 100 100 97 Oxygen Delivery Method Room Air Room Air Room Air MDM - URI/Sore Throat <Rosaura Ayala, [facility] - Last Filed: 07/22/22 14:21> Lab Data Labs: Lab Results 07/22/22 Range/Units 10:50 SARS-CoV-2 (PCR) Negative (Negative) Influenza A (RT-PCR) Flu a negative (NEGATIVE) Influenza B (RT-PCR) Flu b negative (NEGATIVE) RSV (PCR) Negative (Negative) Imaging Data Chest x-ray: Radiologist's Impression: PROCEDURE:? XR CHEST 2V ? INDICATIONS:? cough and congestion 2 months ? TECHNIQUE:? 2 views of the chest were acquired.? ? COMPARISON:? [facility], CR, XR CHEST 1V, 01/11/2022, 17:54. ? FINDINGS:? ? Surgical changes and devices:? None.? ? Lungs and pleura:? Lungs are slightly hyperinflated.? There is minor bilateral perihilar bronchial wall thickening.? No pleural effusions or pneumothorax.? ? Mediastinum:? Mediastinal contours are normal.? Heart size is normal.? ? Bones and chest wall:? No suspicious bony abnormalities.? Soft tissues appear unremarkable.? ? IMPRESSION:? ? 1. Slight hyperinflation and mild perihilar bronchial wall thickening suggesting reactive airways disease/asthma, or bronchitis.? ? ? Dictated by: Anamaria Wilder M.D. on 07/22/2022 at 10:11 ? ? Approved by: Anamaria Wilder M.D. on 07/22/2022 at 10:12 ? [facility] Narrative Medical decision making narrative: Chief Complaint: This patient presents with dyspnea, most likely secondary to _. Presentation not consistent with acute cardiac etiologies to include ACS (non ischemic ekg, unremarkable trop), CHF, pericardial effusion / tamponade . Presentation not consistent with acute respiratory etiologies to include . Presentation also not consistent with non-cardiopulmonary causes to include toxidromes, metabolic etiologies such as acidemia or electrolyte derangements, sepsis, neurologic causes (i.e. demyelinating diseases). Differential diagnoses include but are not limited to: Asthma or COPD exacerbation, upper respiratory viral illness, acute PE, acute WA, low risk pneumothorax, asthma, COPD exacerbation, allergic etiologies, or infectious etiologies such as PNA. I have reviewed the patient's vital signs and nursing notes as well as prior records if available. Lab test results independently reviewed, pertinent findings: Respiratory panel is negative for COVID, influenza a and B and RSV. Independently reviewed imaging including: Chest x-ray which shows hyperinflation and perihilar bronchial wall thickening Clinical decision rules or scores evaluated: Wells low risk, perc negative, heart score 1 Course of care and re-evaluations: Respiratory therapy saw the patient gave a DuoNeb, all of her symptoms improved she did not have shortness of breath any longer or wheezes with good air movement. She was given a albuterol inhaler with a spacer and taught how to use it. She was treated with prednisone today and for the next 7 days with a mild taper Respiratory panel is negative for tested viruses, encouraged her to stay hydrated, follow up with her primary doctor for ongoing needs and return for worsening symptoms. Patient's symptoms improved over duration of stay with above-stated therapies. Social considerations that may affect disposition: History of substance abuse Questions are addressed and there is agreement with the plan and for follow-up. Patient is appropriate for outpatient management. MIPS: This encounter doesn't have any diagnosis' associated with MIPS criteria. <Fernanda Ivey, DO - Last Filed: 07/22/22 18:44> Lab Data Labs: Lab Results 07/22/22 Range/Units 10:50 SARS-CoV-2 (PCR) Negative (Negative) Influenza A (RT-PCR) Flu a negative (NEGATIVE) Influenza B (RT-PCR) Flu b negative (NEGATIVE) RSV (PCR) Negative (Negative) Discharge Plan Departure Patient Disposition: Home Clinical Impression: COPD (chronic obstructive pulmonary disease) with acute bronchitis Instructions: Chronic Obstructive Pulmonary Disease, Asthma -- Adult Activity Restrictions/Additional Instructions: *You have been diagnosed with severe asthma exacerbation and have reactive airway disease. Because of your history of being sick for 3 weeks, and history of pneumonia, we will treat you empirically for pneumonia this time as well. Please stay hydrated, avoid smoking as much as possible. Please use your inhaler and take the steroid as prescribed. Please take all of your medications with food and water. Please come back if you have worsening symptoms, severe shortness of breath or other concerns. *What to do: *Please continue to take your regular medications as directed. [ x] New medication prescriptions sent to your pharmacy: [ [facility]] [ ] New medication written as a paper prescription [ ] No new medications given *Please follow up with your primary care provider in 2-3 days, call for an appointment. Let them know you were seen in the Emergency Department and that we asked that you be seen for follow-up. We will electronically transmit a record of today's note if your PCP is in our system *If you do not have a primary care provider please contact [phone] to establish care with one of the [facility] primary care providers. *Return to Emergency Department if you should have any new, worsening, or concerning symptoms, such as [fever greater than 101F, chills, worsening pain, persistent vomiting or other bothersome symptoms]. Prescriptions: New amoxicillin-pot clavulanate 875-125 mg tablet 1 tab PO BID 5 Days Qty: 10 0RF doxycycline hyclate 100 mg capsule 100 mg PO BID 5 Days Qty: 10 0RF albuterol sulfate 90 mcg/actuation HFA aerosol inhaler 1 puff inhalation QID PRN (Reason: shortness of breath or wheezing) Qty: 8.5 3RF prednisone 20 mg tablet 40 mg PO BID 5 Days Qty: 20 0RF Rx Instructions: Take 40 mg for the 1st 3 days and then take 20 mg daily until gone No Action cephalexin 500 mg capsule 500 mg PO QID Qty: 40 0RF sulfamethoxazole-trimethoprim [Bactrim DS] 800-160 mg tablet 1 tab PO BID Qty: 14 0RF Referrals: Vidhi Anderson MD [Primary Care Provider] - Stand Alone Forms: Patient Portal/API <Fernanda Ivey DO - Last Filed: 07/22/22 18:44> Cosign ED Attending Odilonature Attestation: I was immediately available in the department for consultation. Documentation has been reviewed.
== END 2022-07-22 14:08 | disposition home or self-care (01) ==
PROVIDERS: Emergency Medicine; Emergency Provider Nurse Practitioner Critical Care Medicine; PCP Family Medicine
DX: J44.0 Chronic obstructive pulmonary disease with (acute) lower respiratory infection (principal); J40 Bronchitis, not specified as acute or chronic; Z20.822 Contact with and (suspected) exposure to COVID-19
CPT/HCPCS: 0241U; 71046; 94640; 99283; A9270

== ENCOUNTER 2022-08-18 10:07 | Emergency (ER) | payer OTHER, MEDICAID, SELFPAY ==
[2022-01-11 18:08] VITALS: PULSE 80; RESP 16; O2SAT 100
[2022-08-18 10:14] VITALS: BP 131/94; PULSE 79; RESP 15; TEMP 36.2; O2SAT 96; BMI 23.5
--- NOTE | 2022-08-18 10:37 | ED.SEIZURE ---
HPI - Seizure General Chief Complaint: Seizure Stated Complaint: seizure Time Seen by Provider: 08/18/22 10:10 Source: patient and EMS Mode of arrival: Wheelchair Limitations: no limitations History of Present Illness HPI Narrative: 51-year-old female smoker with history of COPD, prior head injury with resultant subdural hematoma and post injury seizures that had previously been treated with Keppra presents to the emergency department today with a chief complaint of report of seizure-like activity. She states that she is not had access to her Keppra for a week or 2 and had been in her normal state of health until she started feeling a little bit funny this morning. She was witnessed by a friend to have about a 1 minute episode of being unresponsive and extremities twitching, EMS was activated and on their arrival she was still somewhat confused but had returned to her baseline by the time she arrived here. She denies any recent trauma, she is had no fever or chills. She denies recent nausea, vomiting or diarrhea. She denies any alcohol use. She did bite her tongue slightly but denies loss of control of bladder Related Data Previous Rx's Medication Instructions Recorded cephalexin 500 mg capsule 500 mg PO QID #40 caps 07/09/19 sulfamethoxazole 800 1 tab PO BID #14 tabs 07/09/19 mg-trimethoprim 160 mg tablet (Bactrim DS) albuterol sulfate 90 mcg/actuation 1 puff inhalation QID PRN 07/22/22 aerosol inhaler shortness of breath or wheezing #8.5 grams levetiracetam 500 mg tablet 500 mg PO BID #60 tabs 08/18/22 (Keppra) Allergies Allergy/AdvReac Type Severity Reaction Status Date / Time morphine [MORPHINE] Allergy Unknown ITCHING Verified 08/18/22 10:14 Review of Systems Review of Systems Narrative: GENERAL: Denies chills, fatigue, malaise, fever, sweats. HEENT: See HPI RESPIRATORY: Denies dyspnea, cough, wheezing, hemoptysis, sputum. CARDIOVASCULAR: Denies chest pain, palpitations, orthopnea, edema, GASTROINTESTINAL: Denies nausea, vomiting, abdominal pain, diarrhea, constipation, melena. : Denies dysuria, frequency, incontinence, hematuria, urinary retention. MUSCULOSKELETAL: denies weakness, joint pain, or bony pain SKIN: Denies rash, skin lesions, or other NEUROLOGIC: See HPI PSYCHIATRIC: No concerning psychosocial issues. 12 point review of systems is negative except for those stated above Patient History Social History Smoking Status: Current every day smoker Smoking Status: Current every day smoker alcohol intake frequency: holidays/special occasions only Substance Use Type: marijuana Exam Narrative Exam Narrative: GENERAL: [51] year old patient appears stated age. Well-developed patient, in mild distress. GCS 15 HEAD: Atraumatic. Normocephalic. No hematoma, abrasion or evidence of depressed skull fracture EYES: Pupils equal round and reactive. Extraocular motions intact. No scleral icterus. No injection or drainage. ENT: Very mild tongue laceration, not through and through Nose without bleeding, purulent drainage. Throat without erythema, tonsillar hypertrophy or exudate. Airway patent. NECK: Trachea midline. Non tender CARDIOVASCULAR: Regular rate and rhythm without murmurs, gallops, or rubs. RESPIRATORY: Clear to auscultation. Breath sounds equal bilaterally. No wheezes, rales, or rhonchi. GASTROINTESTINAL: Abdomen soft, non-tender, nondistended. EXTREMITIES: No edema or joint tenderness. BACK: Nontender without deformity or crepitance. No flank tenderness. NEURO: AOx3. Cranial nerves 2-12 grossly intact SKIN: No rash or erythema of visible areas Initial Vital Signs Initial Vital Signs: Vital Signs Temperature 97.1 F L 08/18/22 10:14 Pulse Rate 79 08/18/22 10:14 Respiratory Rate 15 08/18/22 10:14 Blood Pressure 131/94 H 08/18/22 10:14 Pulse Oximetry 96 08/18/22 10:14 Oxygen Delivery Method 08/18/22 10:14 Course Orders Ordered: Discontinued Medications Levetiracetam 1,000 mg/ Sodium (Chloride) 110 mls @ 440 mls/hr IV NOW ONE Stop: 08/18/22 11:06 Last Infusion: 08/18/22 12:13 Dose: 0 mls/hr Documented By: Admin: 08/18/22 11:46 Dose: 440 mls/hr Documented By: LAISHA Vital Signs Vital signs: Vital Signs - 8 hr 08/18/22 10:14 Temperature 97.1 F L Pulse Rate 79 Respiratory Rate 15 Blood Pressure 131/94 H Pulse Oximetry 96 Oxygen Delivery Method Room Air MDM - Seizure Lab Data 08/18/22 10:26 08/18/22 10:26 Labs: Lab Results 08/18/22 08/18/22 08/18/22 Range/Units 10:26 10:26 10:26 WBC 6.5 (4.5-11.0) X10^3/uL RBC 4.35 (4.0-5.2) X10^6/uL Hgb 11.9 L (12.0-16.0) g/dL Hct 36.0 (36-46) % MCV 82.8 (80-100) fL MCH 27.4 (26-34) PG MCHC 33.1 (30-36) % RDW 15.9 H (11.6-14.8) % Plt Count 386 (150-400) X10^3/uL Neut % (Auto) 63.6 (50-75) % Lymph % (Auto) 25.6 (25-40) % [place] % (Auto) 8.3 (3-14) % Eos % (Auto) 1.5 L (2-4) % Baso % (Auto) 1.0 (0-2) % Neut # (Auto) 4100 (2983-1902) /uL Lymph # (Auto) 1700 (9009-7704) /uL [place] # (Auto) 500 (0-900) /uL Eos # (Auto) 100 (0-450) /uL Baso # (Auto) 100 (0-100) /uL Sodium 138 (137-145) mmol/L Potassium 3.7 (3.4-5.1) mmol/L Chloride 103 (98-107) mmol/L Carbon Dioxide 28 (22-32) mmol/L BUN 15 (7-17) mg/dL Creatinine 0.58 (0.52-1.04) mg/dL Estimated GFR > 60 (>60) mL/min BUN/Creatinine Ratio 25.9 H (6-22) Glucose 96 (70-100) mg/dL Calcium 8.7 (8.4-10.2) mg/dL Magnesium (1.6-2.3) mg/dL Total Bilirubin 1.1 (0.2-1.3) mg/dL AST 29 (14-36) IU/L ALT 21 (<35) IU/L Alkaline Phosphatase 108 (38-126) U/L Total Protein 7.3 (6.3-8.2) g/dL Albumin 4.2 (3.5-5.0) g/dL Globulin 3.1 (1.7-4.1) g/dL Albumin/Globulin Ratio 1.4 (1.0-2.8) Prolactin 46.4 H (3.0-18.6) ng/mL Urine RBC (0-5/HPF) Urine WBC (0-5/HPF) Ur Squamous Epith Cells (0-5/HPF) Urine Bacteria (None) Hyaline Casts (None) Urine Mucus (Negative) Ethyl Alcohol < 10 ( - 10) mg/dL 08/18/22 08/18/22 Range/Units 10:26 10:28 WBC (4.5-11.0) X10^3/uL RBC (4.0-5.2) X10^6/uL Hgb (12.0-16.0) g/dL Hct (36-46) % MCV (80-100) fL MCH (26-34) PG MCHC (30-36) % RDW (11.6-14.8) % Plt Count (150-400) X10^3/uL Neut % (Auto) (50-75) % Lymph % (Auto) (25-40) % [place] % (Auto) (3-14) % Eos % (Auto) (2-4) % Baso % (Auto) (0-2) % Neut # (Auto) (6140-4692) /uL Lymph # (Auto) (0444-8788) /uL [place] # (Auto) (0-900) /uL Eos # (Auto) (0-450) /uL Baso # (Auto) (0-100) /uL Sodium (137-145) mmol/L Potassium (3.4-5.1) mmol/L Chloride (98-107) mmol/L Carbon Dioxide (22-32) mmol/L BUN (7-17) mg/dL Creatinine (0.52-1.04) mg/dL Estimated GFR (>60) mL/min BUN/Creatinine Ratio (6-22) Glucose (70-100) mg/dL Calcium (8.4-10.2) mg/dL Magnesium 1.7 (1.6-2.3) mg/dL Total Bilirubin (0.2-1.3) mg/dL AST (14-36) IU/L ALT (<35) IU/L Alkaline Phosphatase (38-126) U/L Total Protein (6.3-8.2) g/dL Albumin (3.5-5.0) g/dL Globulin (1.7-4.1) g/dL Albumin/Globulin Ratio (1.0-2.8) Prolactin (3.0-18.6) ng/mL Urine RBC None seen (0-5/HPF) Urine WBC 1-5/hpf (0-5/HPF) Ur Squamous Epith Cells 5-10 /hpf H (0-5/HPF) Urine Bacteria Few (2-10) H (None) Hyaline Casts 0-1/lpf (None) Urine Mucus 1+ H (Negative) Ethyl Alcohol ( - 10) mg/dL Urine Dip Bedside Urine Glucose Negative Bedside Urine Bilirubin - Negative Bedside Urine Ketone - Negative Urine Specific [place] 1.02 Bedside Urine Occult Blood - Negative Bedside Urine pH 6.0 Bedside Urine Protein ++ 100 Bedside Urine Urobilinogen - Negative Bedside Urine Nitrite - Negative Bedside Urine Leukocytes - Negative Esterase Imaging Data CT scan - head: Radiologist's Impression: [address] [address] [address] Scan Report Signed Patient: Dorothy Mayers MR#: [id number] : 1970 Acct:[id number] Age/Sex: 51 / F Date of Service: 08/18/22 Loc: ED Accession Number: [id number] ?? Procedure: CT head/brain wo con Ordering Provider: Chas Soriano D.O. PROCEDURE:? CT HEAD/BRAIN WO CON ? INDICATIONS:? change in seizure, prior SDH ? TECHNIQUE:? Noncontrast 4.5 mm thick angled axial sections acquired from the foramen magnum to the vertex, with coronal and sagittal reformats.? For radiation dose reduction, the following was used:? automated exposure control, adjustment of mA and/or kV according to patient size.? ? COMPARISON:? [facility], CT, CT HEAD/BRAIN WO CON, 01/11/2022, 17:00. ? FINDINGS:? Image quality:? Mild streak artifact can be seen through the skull base. ? CSF spaces:? Basal cisterns are patent.? No extra-axial fluid collections.? Ventricles are normal in size and shape.? ? Brain:? No midline shift.? No intracranial masses or hemorrhage.? Ospina-white matter interface is normal.? ? Skull and face:? Calvarium and visualized facial bones are intact, without suspicious lesions.? The previously seen fracture lines are not seen on this study. ? Sinuses:? Visualized sinuses and mastoids are clear.? IMPRESSION:? No acute intracranial hemorrhage is seen.? ? No cause of seizures is not identified on this noncontrast head CT. ? ? Dictated by: Luis Lepe M.D. on 08/18/2022 at 10:45 ? ? Approved by: Luis Lepe M.D. on 08/18/2022 at 10:46 ? MDM Narrative Medical decision making narrative: CC: 51-year-old female with prior head injury and resultant seizures presents with a witnessed 1 minute tonic-clonic seizure Complicating co-morbidities: Age, prior head injury, seizure history Data collected from: Patient and EMS Medical records reviewed: Multiple prior records in our EMR Differential considered, but not limited to: Seizure due to medical noncompliance, electrolyte abnormality, alcohol withdrawal, recurrence of head bleed versus other Exam documented above, pertinent findings include: Patient alert and oriented x3, GCS 15, no evidence of injury, reports feeling asymptomatic, very minimal tongue laceration, otherwise well Lab Test results independently reviewed as above. Pertinent findings: Independently reviewed EKG as above Imaging studies independently reviewed: normal Head CT Treatments: Keppra Re-evaluations: Patient asymptomatic and at baseline for duration Discussion: 51F with witnessed seizure, she does have a seizure history and states she is not been able to take her medications, she is at baseline here. Most likely due to medication noncompliance. Other causes including intracranial hemorrhage, electrolyte abnormality considered but thought unlikely given elements of history, physical, labs and imaging. She does not drink, patient loaded with Keppra Disposition: see below, along with detailed discharge instructions that have been reviewed with patient as well as indications for ED re-evaluation and additional outpatient follow up Discharge Plan Departure Patient Disposition: Home Clinical Impression: Epileptic seizure Instructions: DI for Seizure Disorder -- Adult Activity Restrictions/Additional Instructions: *You have been diagnosed with [seizure, likely due to not being on your medications. Your history, physical exam, labs and imaging are otherwise reassuring] *What to do: *Please continue to take your regular medications as directed. [x ] New medication prescriptions sent to your pharmacy: [[facility]] [ ] New medication written as a paper prescription [ ] No new medications given *Please follow up with your primary care provider in 2-3 days, call for an appointment. Let them know you were seen in the Emergency Department and that we ask that you be seen in follow up. We will electronically transmit a record of today's note if your PCP is in our system *If you do not have a primary care provider please contact the [facility] Resource line at [phone]. They will ask some questions about your medical history and help get you set up with a doctor in the community. *Return to Emergency Department if you should have any new, worsening or concerning symptoms, such as [fever greater than 101 F, shaking chills, worsening pain, persistent vomiting or other bothersome symptoms] Prescriptions: New levetiracetam [Keppra] 500 mg tablet 500 mg PO BID Qty: 60 0RF No Action cephalexin 500 mg capsule 500 mg PO QID Qty: 40 0RF sulfamethoxazole-trimethoprim [Bactrim DS] 800-160 mg tablet 1 tab PO BID Qty: 14 0RF albuterol sulfate 90 mcg/actuation HFA aerosol inhaler 1 puff inhalation QID PRN (Reason: shortness of breath or wheezing) Qty: 8.5 3RF Referrals: Vidhi Anderson MD [Primary Care Provider] - Stand Alone Forms: Patient Portal/API
[2022-08-18 10:41] LABS: Add Manual Diff / Slide Review NO; Basophils Absolute Auto 100 /uL (0-100); Eosinophils Absolute Auto 100 /uL (0-450); Eosinophils Percent Auto 1.5 % (2-4); Hemoglobin 11.9 g/dL (12.0-16.0); Lymphocytes Absolute Auto 1700 /uL (1100-4500); Lymphocytes Percent Auto 25.6 % (25-40); Mean Corpuscular HGB Conc 33.1 % (30-36); Mean Corpuscular Hemoglobin 27.4 PG (26-34); Mean Corpuscular Volume 82.8 fL (80-100); Monocytes Absolute Auto 500 /uL (0-900); Monocytes Percent Auto 8.3 % (3-14); Neutrophils Absolute Auto 4100 /uL (1500-7000); Neutrophils Percent Auto 63.6 % (50-75); Platelet Count 386 X10^3/uL (150-400); Red Blood Cell Count 4.35 X10^6/uL (4.0-5.2); Red Cell Distribution Width 15.9 % (11.6-14.8); White Blood Cell Count 6.5 X10^3/uL (4.5-11.0)
[2022-08-18 11:03] LABS: Alanine Aminotransferase 21 IU/L (<35); Albumin 4.2 g/dL (3.5-5.0); Albumin Globulin Ratio 1.4 (1.0-2.8); Alkaline Phosphatase 108 U/L (38-126); Aspartate Aminotransferase 29 IU/L (14-36); BUN Creatinine Ratio 25.9 (6-22); Bilirubin Total 1.1 mg/dL (0.2-1.3); Blood Urea Nitrogen 15 mg/dL (7-17); Calcium 8.7 mg/dL (8.4-10.2); Carbon Dioxide 28 mmol/L (22-32); Chloride 103 mmol/L (98-107); Estimated Glomerular Filt Rate > 60 mL/min (>60); Globulin 3.1 g/dL (1.7-4.1); Glucose 96 mg/dL (70-100); HEMOLYSIS < 15 (0-50); Magnesium 1.7 mg/dL (1.6-2.3); Potassium 3.7 mmol/L (3.4-5.1); Sodium 138 mmol/L (137-145); Total Protein 7.3 g/dL (6.3-8.2)
--- NOTE | 2022-08-18 11:09 | DI.CT.S_ITS ---
PROCEDURE: CT HEAD/BRAIN WO CON INDICATIONS: change in seizure, prior SDH TECHNIQUE: Noncontrast 4.5 mm thick angled axial sections acquired from the foramen magnum to the vertex, with coronal and sagittal reformats. For radiation dose reduction, the following was used: automated exposure control, adjustment of mA and/or kV according to patient size. COMPARISON: [facility], CT, CT HEAD/BRAIN WO CON, 01/11/2022, 17:00. FINDINGS: Image quality: Mild streak artifact can be seen through the skull base. CSF spaces: Basal cisterns are patent. No extra-axial fluid collections. Ventricles are normal in size and shape. Brain: No midline shift. No intracranial masses or hemorrhage. Ospina-white matter interface is normal. Skull and face: Calvarium and visualized facial bones are intact, without suspicious lesions. The previously seen fracture lines are not seen on this study. Sinuses: Visualized sinuses and mastoids are clear. IMPRESSION: No acute intracranial hemorrhage is seen. No cause of seizures is not identified on this noncontrast head CT. Dictated by: Luis Lepe M.D. on 08/18/2022 at 10:45 Approved by: Luis Lepe M.D. on 08/18/2022 at 10:46
[2022-08-18 11:27] LABS: Ethanol (ETOH) < 10 mg/dL; Prolactin 46.4 ng/mL (3.0-18.6)
[2022-08-18] MEDS: levETIRAcetam 1,000 MG in SODIUM CHLORIDE 0.9% 100 ML 440 MG IV (11:46)
--- NOTE | 2022-08-18 11:48 | PC.NURSE ---
pt had a witnessed seizure,denies injury. pt has hx seizure x1 does not take meds for seizures. Pt is alert/oriented at triage,feeling dizzy.
[2022-08-18 12:13] VITALS: BP 142/82; PULSE 78; O2SAT 98
[2022-08-18 12:25] LABS: Bacteria Urine Few (2-10); Hyaline Casts Urine 0-1/LPF; Mucus Urine 1+ (Negative); RBC Urine None Seen (0-5/HPF); Squamous Epithelial Cell Urine 5-10 /HPF (0-5/HPF); WBC Urine 1-5/HPF (0-5/HPF)
== END 2022-08-18 12:15 | disposition home or self-care (01) ==
PROVIDERS: Emergency Provider Emergency Medicine; PCP Family Medicine
DX: G40.909 Epilepsy, unspecified, not intractable, without status epilepticus (principal)
CPT/HCPCS: 36415; 70450; 80053; 80320; 81003; 81015; 83735; 84146; 85025; 96365; 99284; J1953

== ENCOUNTER 2022-09-25 01:31 | Emergency (ER) | payer OTHER, MEDICAID, SELFPAY ==
[2022-01-11 18:08] VITALS: PULSE 80; RESP 16; O2SAT 100
[2022-09-25 01:56] VITALS: BP 138/90; PULSE 81; RESP 16; TEMP 36.6; O2SAT 97; BMI 24.7
--- NOTE | 2022-09-25 02:00 | DI.RAD.S_ITS ---
PROCEDURE: XR FOOT RT MIN 3V INDICATIONS: stepped on nail TECHNIQUE: 3 views of the foot were acquired. COMPARISON: None. FINDINGS: Bones: No fractures or dislocations. No suspicious bony lesions. Age-appropriate bony degenerative changes are seen. Soft tissues: There is a 5 mm linear metallic foreign body seen inferior to the 1st metatarsal head. There is a very faintly seen additional 4 mm apparent foreign bodies seen more medially. IMPRESSION: Metallic appearing foreign bodies seen adjacent to the 1st metatarsal head. Note: No significant discrepancy from the preliminary report. Dictated by: Luis Lepe M.D. on 09/25/2022 at 8:38 Approved by: Luis Lepe M.D. on 09/25/2022 at 8:41
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
[2022-09-25] MEDS: CIPROFLOXACIN 250 MG TABLET 500 MG PO (03:52)
[2022-09-25] MEDS: TET,DIPH,PERTUSS(ACELL),VAC/PF 0.5 ML SYRINGE IM (03:52)
== END 2022-09-25 04:03 | disposition home or self-care (01) ==
PROVIDERS: Emergency Provider Emergency Medicine; PCP Family Medicine
DX: S91.331A Puncture wound without foreign body, right foot, initial encounter (principal); W22.8XXA Striking against or struck by other objects, initial encounter; Z23 Encounter for immunization
CPT/HCPCS: 73630; 90471; 99283; 99284; 90715

== ENCOUNTER 2023-12-08 16:47 | Emergency (ER) | payer OTHER, SELFPAY ==
[2022-01-11 18:08] VITALS: PULSE 80; RESP 16; O2SAT 100
[2023-12-08] VITALS (25 sets, daily range): BP systolic 118–160; BP diastolic 77–99; PULSE 56–89; RESP 8–31; TEMP 37; O2SAT 93–99; BMI 25.0
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
--- NOTE | 2023-12-08 16:56 | DI.CT.S_ITS ---
PROCEDURE: CT HEAD/BRAIN WO CON INDICATIONS: Trauma TECHNIQUE: Noncontrast 4.5 mm thick angled axial sections acquired from the foramen magnum to the vertex, with coronal and sagittal reformats. For radiation dose reduction, the following was used: automated exposure control, adjustment of mA and/or kV according to patient size. COMPARISON: [facility], CT, CT HEAD/BRAIN WO CON, 08/18/2022, 11:26. FINDINGS: Image quality: Diagnostic CSF spaces: Basal cisterns are patent. Lateral ventricles are symmetric. Volume: Minimal volume loss Brain: No intracranial hemorrhage. Ospina-white differentiation is grossly maintained. Craniofacial structures: Left scalp contusion and laceration. No displaced fracture is identified. Partial opacification of left sphenoid sinus. IMPRESSION: No acute intracranial abnormality. Left scalp contusion. Dictated by: Harpreet Ralph M.D. on 12/08/2023 at 17:28 Approved by: Harpreet Ralph M.D. on 12/08/2023 at 17:29
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
[2023-12-08 17:03] LABS: Add Manual Diff / Slide Review NO; Basophils Absolute Auto 0 /uL (0-100); Basophils Percent Auto 0.8 % (0-2); Eosinophils Absolute Auto 100 /uL (0-450); Eosinophils Percent Auto 1.6 % (2-4); Hematocrit 44.8 % (36-46); Hemoglobin 15.1 g/dL (12.0-16.0); Lymphocytes Absolute Auto 1800 /uL (1100-4500); Lymphocytes Percent Auto 30.6 % (25-40); Mean Corpuscular HGB Conc 33.6 % (30-36); Mean Corpuscular Hemoglobin 28.6 PG (26-34); Mean Corpuscular Volume 85.1 fL (80-100); Monocytes Absolute Auto 500 /uL (0-900); Monocytes Percent Auto 9.1 % (3-14); Neutrophils Absolute Auto 3400 /uL (1500-7000); Neutrophils Percent Auto 57.9 % (50-75); Platelet Count 361 X10^3/uL (150-400); Red Blood Cell Count 5.27 X10^6/uL (4.0-5.2); Red Cell Distribution Width 14.7 % (11.6-14.8); White Blood Cell Count 5.8 X10^3/uL (4.5-11.0)
[2023-12-08 17:08] LABS: Prothrombin Time 11.5 SECONDS (9.4-12.5)
[2023-12-08 17:11] LABS: PTT Partial Thromboplastin Tim 35 SECONDS (25.1-36.5)
[2023-12-08 17:13] LABS: Alanine Aminotransferase 21 IU/L (<35); Albumin 4.3 g/dL (3.5-5.0); Albumin Globulin Ratio 1.5 (1.0-2.8); Alkaline Phosphatase 111 U/L (38-126); Aspartate Aminotransferase 30 IU/L (14-36); BUN Creatinine Ratio 11.7 (6-22); Bilirubin Total 1.1 mg/dL (0.2-1.3); Blood Urea Nitrogen 9 mg/dL (7-17); Calcium 9.1 mg/dL (8.4-10.2); Carbon Dioxide 27 mmol/L (22-32); Chloride 105 mmol/L (98-107); Estimated Glomerular Filt Rate > 60 mL/min (>60); Ethanol (ETOH) < 10 mg/dL; Globulin 2.8 g/dL (1.7-4.1); Glucose 129 mg/dL (70-100); HEMOLYSIS < 15 (0-50); Lipase 120 U/L (23-300); Potassium 3.6 mmol/L (3.4-5.1); Sodium 138 mmol/L (137-145); Total Protein 7.1 g/dL (6.3-8.2)
[2023-12-08 17:14] LABS: Lactate (Lactic Acid) 1.1 mmol/L (0.7-2.1)
[2023-12-08] MEDS: ONDANSETRON 4 MG/2 ML INJ IV (17:15)
[2023-12-08] MEDS: SODIUM CHLORIDE 0.9% 1,000 ML 150 ML IV (17:15)
--- NOTE | 2023-12-08 17:18 | PC.NURSE ---
Provider at bedside immediately after patient transfer to hospital stretcher. Patient placed in c-collar in the field by EMS.
== END 2023-12-08 19:15 | disposition home or self-care (01) ==
PROVIDERS: Emergency Provider Emergency Medicine
DX: S01.81XA Laceration without foreign body of other part of head, initial encounter (principal); S60.511A Abrasion of right hand, initial encounter; S70.212A Abrasion, left hip, initial encounter; S70.211A Abrasion, right hip, initial encounter; S00.03XA Contusion of scalp, initial encounter; V23.59XA Other motorcycle passenger injured in collision with car, pick-up truck or van in traffic accident, initial encounter
CPT/HCPCS: 36415; 70450; 71045; 72125; 72170; 80053; 80320; 83605; 83690; 85025; 85610; 85730; 86850; 86900; 86901; 96361; 96374; 99284; J2405

== ENCOUNTER 2024-11-01 16:30 | Emergency (ER) | payer OTHER, SELFPAY ==
[2022-01-11 18:08] VITALS: PULSE 80; RESP 16; O2SAT 100
[2024-11-01 16:40] VITALS: BP 142/83; PULSE 94; RESP 20; TEMP 37; O2SAT 97; BMI 25.8
--- NOTE | 2024-11-01 16:44 | ED.SEIZURE ---
HPI - Seizure <Mark Dominguez MD - Last Filed: 11/06/24 08:05> General Chief Complaint: Seizure Stated Complaint: Fall Time Seen by Provider: 11/01/24 16:38 History of Present Illness HPI Narrative: Patient brought in by ambulance from local bus stop. Was standing on a bench. Witnesses saw her fall forward landing on her face and had seizure. Blood sugar 130. Patient was confused at seen but is improving according to EMS. She is currently awake alert oriented self, states she does have history of seizures but is not on any seizure medications. Does not recall the event. Denies . Denies any drug use. Denies any pain in the chest abdomen pelvis limbs or neck. Only complaints of facial pain. Related Data Previous Rx's Medication Instructions Recorded cephalexin 500 mg capsule 500 mg PO QID #40 caps 07/09/19 sulfamethoxazole 800 1 tab PO BID #14 tabs 07/09/19 mg-trimethoprim 160 mg tablet (Bactrim DS) albuterol sulfate 90 mcg/actuation 1 puff inhalation QID PRN 07/22/22 aerosol inhaler shortness of breath or wheezing #8.5 grams levetiracetam 500 mg tablet 500 mg PO BID #60 tabs 08/18/22 (Keppra) ciprofloxacin HCl 500 mg tablet 500 mg PO BID #20 tabs 09/25/22 (Cipro) levetiracetam 500 mg tablet 500 mg PO BID #60 tabs 11/01/24 (Keppra) Allergies Allergy/AdvReac Type Severity Reaction Status Date / Time morphine [MORPHINE] Allergy Unknown ITCHING Verified 08/18/22 10:14 Review of Systems <Mark Dominguez MD - Last Filed: 11/06/24 08:05> Review of Systems Narrative: GENERAL: Negative chills, fatigue, malaise, fever, sweats. HEENT: Negative sinus pain, ear pain, sore throat RESPIRATORY: Negative dyspnea, cough CARDIOVASCULAR: Negative chest pain, palpitations GASTROINTESTINAL: Negative vomiting, nausea, abdominal pain : Negative dysuria, frequency, hematuria MUSCULOSKELETAL: Positive muscle or bony pain SKIN: Negative rash, skin lesions, positive skin injury NEUROLOGIC: Negative weakness, numbness, positive seizure ROS Unobtainable: All systems reviewed & are unremarkable except as noted in HPI and below Patient History <Mark Dominguez MD - Last Filed: 11/06/24 08:05> Social History Smoking Status: Current every day smoker alcohol intake frequency: holidays/special occasions only Exam <Mark Dominguez MD - Last Filed: 11/06/24 08:05> Narrative Exam Narrative: GENERAL: in no distress, not toxic not dyspneic HEAD: Normocephalic. Abrasion of the forehead and bridge of nose. EYES: Pupils equal round ENT: Mucous membranes moist. No malocclusion or trismus. No jaw tenderness. NECK: Trachea midline. Patient in C-collar on arrival. CARDIOVASCULAR: Regular rate and rhythm RESPIRATORY: Clear to auscultation. Breath sounds equal bilaterally. No wheezes, rales, or rhonchi. GASTROINTESTINAL: Abdomen soft, non-tender EXTREMITIES: No gross deformities. Nontender bilateral shoulders elbows wrists pelvis hips knees and ankles BACK: No flank tenderness. NEURO: AOx2. Clear speech, director of publications equally. Moves all 4 extremities equally and purposely. SKIN: Warm and dry PSYCH: Not anxious, is cooperative Initial Vital Signs Initial Vital Signs: Vital Signs Temperature 98.6 F 11/01/24 16:40 Pulse Rate 94 H 11/01/24 16:40 Respiratory Rate 20 11/01/24 16:40 Blood Pressure 142/83 H 11/01/24 16:40 Pulse Oximetry 97 11/01/24 16:40 Oxygen Delivery Method Room Air 11/01/24 16:40 <Mj Blanco MD - Last Filed: 11/02/24 01:53> Initial Vital Signs Initial Vital Signs: Vital Signs Temperature 98.6 F 11/01/24 16:40 Pulse Rate 94 H 11/01/24 16:40 Respiratory Rate 20 11/01/24 16:40 Blood Pressure 142/83 H 11/01/24 16:40 Pulse Oximetry 97 11/01/24 16:40 Oxygen Delivery Method Room Air 11/01/24 16:40 Course <Mark Dominguez MD - Last Filed: 11/06/24 08:05> Orders Ordered: Discontinued Medications Bacitracin (Bacitracin Oint 0.9 Gm Pckt) 1 applic TOP NOW ONE Stop: 11/01/24 19:18 Last Admin: 11/01/24 19:23 Dose: 1 applic Documented By: REAGAN Diphtheria/Tetanus/Acell Pertussis (Tet,Diph,Pertuss(Acell),Vac/Pf 0.5 Ml Syringe) 0.5 ml IM .ONCE ONE Stop: 11/01/24 16:44 Last Admin: 11/01/24 18:05 Dose: 0.5 ml Documented By: REAGAN Levetiracetam 1,000 mg/ Sodium (Chloride) 110 mls @ 440 mls/hr IV NOW ONE Stop: 11/01/24 18:47 Last Infusion: 11/01/24 19:13 Dose: Infused Documented By: Admin: 11/01/24 18:55 Dose: 440 mls/hr Documented By: REAGAN Vital Signs Vital signs: Vital Signs - 8 hr 11/01/24 18:00 11/01/24 18:00 11/01/24 18:30 Pulse Rate 77 Respiratory Rate 22 Blood Pressure 141/85 H 149/73 H Pulse Oximetry 97 11/01/24 18:30 11/01/24 19:00 11/01/24 19:00 Pulse Rate 68 71 Respiratory Rate 19 14 Blood Pressure 154/84 H Pulse Oximetry 97 96 <Mj Blanco MD - Last Filed: 11/02/24 01:53> Orders Ordered: Discontinued Medications Bacitracin (Bacitracin Oint 0.9 Gm Pckt) 1 applic TOP NOW ONE Stop: 11/01/24 19:18 Last Admin: 11/01/24 19:23 Dose: 1 applic Documented By: REAGAN Diphtheria/Tetanus/Acell Pertussis (Tet,Diph,Pertuss(Acell),Vac/Pf 0.5 Ml Syringe) 0.5 ml IM .ONCE ONE Stop: 11/01/24 16:44 Last Admin: 11/01/24 18:05 Dose: 0.5 ml Documented By: REAGAN Levetiracetam 1,000 mg/ Sodium (Chloride) 110 mls @ 440 mls/hr IV NOW ONE Stop: 11/01/24 18:47 Last Infusion: 11/01/24 19:13 Dose: Infused Documented By: Admin: 11/01/24 18:55 Dose: 440 mls/hr Documented By: REAGAN Vital Signs Vital signs: Vital Signs - 8 hr 11/01/24 18:00 11/01/24 18:00 11/01/24 18:30 Pulse Rate 77 Respiratory Rate 22 Blood Pressure 141/85 H 149/73 H Pulse Oximetry 97 11/01/24 18:30 11/01/24 19:00 11/01/24 19:00 Pulse Rate 68 71 Respiratory Rate 19 14 Blood Pressure 154/84 H Pulse Oximetry 97 96 MDM - Seizure <Mark Dominguez MD - Last Filed: 11/06/24 08:05> Lab Data 11/01/24 16:31 11/01/24 16:31 Labs: Lab Results 11/01/24 Range/Units 16:31 WBC 8.5 (4.5-11.0) X10^3/uL RBC 4.68 (4.0-5.2) X10^6/uL Hgb 13.9 (12.0-16.0) g/dL Hct 42.2 (36-46) % MCV 90.2 (80-100) fL MCH 29.6 (26-34) PG MCHC 32.9 (30-36) % RDW 14.2 (11.6-14.8) % Plt Count 332 (150-400) X10^3/uL Neut % (Auto) 47.8 L (50-75) % Lymph % (Auto) 40.7 H (25-40) % [place] % (Auto) 8.3 (3-14) % Eos % (Auto) 2.4 (2-4) % Baso % (Auto) 0.8 (0-2) % Neut # (Auto) 4100 (7940-3280) /uL Lymph # (Auto) 3500 (1202-1470) /uL [place] # (Auto) 700 (0-900) /uL Eos # (Auto) 200 (0-450) /uL Baso # (Auto) 100 (0-100) /uL Sodium 137 (137-145) mmol/L Potassium 3.6 (3.4-5.1) mmol/L Chloride 103 (98-107) mmol/L Carbon Dioxide 19 L (22-32) mmol/L BUN 18 H (7-17) mg/dL Creatinine 0.79 (0.52-1.04) mg/dL Estimated GFR > 60 (>60) mL/min BUN/Creatinine Ratio 22.8 H (6-22) Glucose 129 H (70-99) mg/dL Calcium 9.0 (8.4-10.2) mg/dL Total Bilirubin 0.9 (0.2-1.3) mg/dL AST 42 H (14-36) IU/L ALT 29 (<35) IU/L Alkaline Phosphatase 139 H (38-126) U/L Total Protein 7.7 (6.3-8.2) g/dL Albumin 4.7 (3.5-5.0) g/dL Globulin 3.0 (1.7-4.1) g/dL Albumin/Globulin Ratio 1.6 (1.0-2.8) Ethyl Alcohol < 10 ( - 10) mg/dL Imaging Data CT scan - head: Radiologist's Impression: [address] [address] [address] Scan Report Signed Patient: Dorothy Mayers MR#: [id number] : 1970 Acct:[id number] Age/Sex: 54 / F Date of Service: 11/01/24 Loc: ED Accession Number: [id number] Procedure: CT head/brain wo con Ordering Provider: Mark Dominguez MD PROCEDURE: CT HEAD/BRAIN WO CON INDICATIONS: Fall/pain TECHNIQUE: Noncontrast 4.5 mm thick angled axial sections acquired from the foramen magnum to the vertex, with coronal and sagittal reformats. For radiation dose reduction, the following was used: automated exposure control, adjustment of mA and/or kV according to patient size. COMPARISON: [facility], CT, CT FACIAL BONES WO CON, 11/01/2024, 16:50. [facility], CT, CT HEAD/BRAIN WO CON, 12/08/2023, 17:07. FINDINGS: Image quality: Diagnostic. CSF spaces: Basal cisterns are patent. No extra-axial fluid collections. Ventricles are normal in size and shape. Brain: No midline shift. No intracranial mass effect or hemorrhage. Ospina-white matter interface is normal. Skull and face: Calvarium and visualized facial bones are intact, without suspicious lesions. Sinuses: Visualized sinuses and mastoids are clear. IMPRESSION: No acute intracranial pathology. Dictated by: Smiley Martinez M.D. on 11/01/2024 at 17:17 Approved by: Smiley Martinez M.D. on 11/01/2024 at 17:17 CT - cervical spine: Radiologist's Impression: [address] [address] [address] Scan Report Signed Patient: Dorothy Mayers MR#: [id number] : 1970 Acct:[id number] Age/Sex: 54 / F Date of Service: 11/01/24 Loc: ED Accession Number: [id number] Procedure: CT cervical spine wo con Ordering Provider: Mark Dominguez MD PROCEDURE: CT CERVICAL SPINE WO CON INDICATIONS: Fall/pain TECHNIQUE: Noncontrast 3 mm thick sections acquired from the skull base to the T4 level. Sagittal and coronal reformats were then constructed. For radiation dose reduction, the following was used: automated exposure control, adjustment of mA and/or kV according to patient size. COMPARISON: [facility], CT, CT CERVICAL SPINE WO CON, 12/08/2023, 17:07. FINDINGS: Image quality: Excellent. Bones: No fractures or dislocations. Visualized superior ribs are intact. Multilevel degenerative changes. Soft tissues: Prevertebral soft tissues are normal in thickness. No paravertebral hematomas. No apical pneumothoraces. IMPRESSION: No visualized fracture. Dictated by: Smiley Martinez M.D. on 11/01/2024 at 17:31 Approved by: Smiley Martinez M.D. on 11/01/2024 at 17:33 CT face: Radiologist's Impression: [address] [address] [address] Scan Report Signed Patient: Dorothy Mayers MR#: [id number] : 1970 Acct:[id number] Age/Sex: 54 / F Date of Service: 11/01/24 Loc: ED Accession Number: [id number] Procedure: CT facial bones wo con Ordering Provider: Mark Dominguez MD PROCEDURE: CT FACIAL BONES WO CON INDICATIONS: Fall/pain TECHNIQUE: Noncontrast 2.5 mm thick axial images acquired from the mandible through the frontal sinuses, with coronal and sagittal reformatting. For radiation dose reduction, the following was used: automated exposure control, adjustment of mA and/or kV according to patient size. COMPARISON: [facility], CT, CT FACIAL BONES WO CON, 01/11/2022, 17:00. FINDINGS: Image quality: Excellent. Bones and teeth: Orbital beckman are intact. Sinus beckman show no fracture or deformity. Nasal bones and septum are intact. Visualized portions of the mandible demonstrate no fractures or subluxation. Zygomatic arches demonstrate slight deformity on the left unchanged compared to prior exam in 2021. . Pterygoid plates are intact. Visualized portions of the skull base and auditory canals are intact. Sinuses: Paranasal sinuses are aerated, without fluid levels, mucosal thickening, or mucoceles. Mastoid air cells are aerated. Soft tissues: No edema, masses, or fluid collections. No enlarged lymph nodes. No soft tissue lacerations or debris. Vascular: Visualized vascular structures appear normal in the absence of contrast. Bony vascular foramina and canals are intact. IMPRESSION: No visualized acute fracture. Dictated by: Smiley Martinez M.D. on 11/01/2024 at 17:29 Approved by: Smiley Martinez M.D. on 11/01/2024 at 17:30 [facility] Narrative Medical decision making narrative: Patient brought in by ambulance from local bus stop. Was standing on a bench. Witnesses saw her fall forward landing on her face and had seizure. Blood sugar 130. Patient was confused at seen but is improving according to EMS. She is currently awake alert oriented self, states she does have history of seizures but is not on any seizure medications. Does not recall the event. Denies . Denies any drug use. Denies any pain in the chest abdomen pelvis limbs or neck. Only complaints of facial pain. After history and exam, CT head face cervical spine EKG CBC CMP drug screen alcohol urinalysis [facility] Medical records reviewed: No recent visit for this complaint Differential considered: Includes but not limited to substance abuse breakthrough seizure noncompliance, arrhythmia STEMI non-STEMI Lab Test results independently reviewed as above. Pertinent findings: WBC 8.5 hemoglobin 13.9 sodium 137 potassium 3.6 BUN 18 creatinine 0.79 GFR greater than 60 AST 42 ALT 29, alcohol negative Independently reviewed EKG normal sinus rhythm rate 81 Imaging studies independently reviewed: CT head face cervical spine no acute finding Consultations: Re-evaluations: Discussion: 6:[address] Dominguez: Sign out to Dr. Blanco, patient will need to be re-evaluated. Patient is still postictal. Drug screen is pending. C-collar has been cleared. CT C-spine no acute bony abnormality Diagnosis: <Mj Blanco MD - Last Filed: 11/02/24 01:53> Lab Data Labs: Lab Results 11/01/24 Range/Units 16:31 WBC 8.5 (4.5-11.0) X10^3/uL RBC 4.68 (4.0-5.2) X10^6/uL Hgb 13.9 (12.0-16.0) g/dL Hct 42.2 (36-46) % MCV 90.2 (80-100) fL MCH 29.6 (26-34) PG MCHC 32.9 (30-36) % RDW 14.2 (11.6-14.8) % Plt Count 332 (150-400) X10^3/uL Neut % (Auto) 47.8 L (50-75) % Lymph % (Auto) 40.7 H (25-40) % [place] % (Auto) 8.3 (3-14) % Eos % (Auto) 2.4 (2-4) % Baso % (Auto) 0.8 (0-2) % Neut # (Auto) 4100 (9951-1198) /uL Lymph # (Auto) 3500 (6633-5732) /uL [place] # (Auto) 700 (0-900) /uL Eos # (Auto) 200 (0-450) /uL Baso # (Auto) 100 (0-100) /uL Sodium 137 (137-145) mmol/L Potassium 3.6 (3.4-5.1) mmol/L Chloride 103 (98-107) mmol/L Carbon Dioxide 19 L (22-32) mmol/L BUN 18 H (7-17) mg/dL Creatinine 0.79 (0.52-1.04) mg/dL Estimated GFR > 60 (>60) mL/min BUN/Creatinine Ratio 22.8 H (6-22) Glucose 129 H (70-99) mg/dL Calcium 9.0 (8.4-10.2) mg/dL Total Bilirubin 0.9 (0.2-1.3) mg/dL AST 42 H (14-36) IU/L ALT 29 (<35) IU/L Alkaline Phosphatase 139 H (38-126) U/L Total Protein 7.7 (6.3-8.2) g/dL Albumin 4.7 (3.5-5.0) g/dL Globulin 3.0 (1.7-4.1) g/dL Albumin/Globulin Ratio 1.6 (1.0-2.8) Ethyl Alcohol < 10 ( - 10) mg/dL [facility] Narrative Medical decision making narrative: Patient brought in by ambulance from local bus stop. Was standing on a bench. Witnesses saw her fall forward landing on her face and had seizure. Blood sugar 130. Patient was confused at seen but is improving according to EMS. She is currently awake alert oriented self, states she does have history of seizures but is not on any seizure medications. Does not recall the event. Denies . Denies any drug use. Denies any pain in the chest abdomen pelvis limbs or neck. Only complaints of facial pain. After history and exam, CT head face cervical spine EKG CBC CMP drug screen alcohol urinalysis [facility] Medical records reviewed: No recent visit for this complaint Differential considered: Includes but not limited to substance abuse breakthrough seizure noncompliance, arrhythmia STEMI non-STEMI Lab Test results independently reviewed as above. Pertinent findings: WBC 8.5 hemoglobin 13.9 sodium 137 potassium 3.6 BUN 18 creatinine 0.79 GFR greater than 60 AST 42 ALT 29, alcohol negative Independently reviewed EKG normal sinus rhythm rate 81 Imaging studies independently reviewed: CT head face cervical spine no acute finding Consultations: Re-evaluations: Discussion: 6:[address] oDminguez: Sign out to Dr. Blanco, patient will need to be re-evaluated. Patient is still postictal. Drug screen is pending. C-collar has been cleared. CT C-spine no acute bony abnormality Diagnosis: 11/01/241829Francis. Sign-out from Dr. Nichols. 54-year-old female with history of seizure disorder, noncompliance with medications, unclear most recent neuroleptic medication regimen, had witnessed seizure at best. , has facial abrasions. CT head, face, cervical spine imaging negative. Still has some confusion, further observe for improved mental status, also to query neuroleptic medication regimen. Assumed care. Patient alert enough to relayed that she takes Keppra 500 mg twice a day, ran out 3 days ago, usually uses [facility] [place]. We will IV load Keppra 1000 mg. Send prescription refill to her pharmacy. We will apply antibiotic ointment to her facial abrasions. Tetanus reportedly up-to-date. Mental status further improved, discharged home. Prescription for Keppra sent to her pharmacy. Encouraged to take her Keppra as prescribed, and to also anticipate refills before she runs out of future medications Discharge Plan Departure Patient Disposition: Home Clinical Impression: Seizure disorder, Fall from ground level Abrasion of face Qualifiers: Encounter type: initial encounter Qualified Code(s): S00.81XA - Abrasion of other part of head, initial encounter Instructions: DI for Seizure Disorder -- Adult Activity Restrictions/Additional Instructions: Witnessed seizure and ground level fall at a bus stop, history of seizure disorder, he had been prescribed Keppra 500 mg twice daily for treatment of seizures, ran out of your medications for 3 days ago. You had [address] scan imaging of the brain, face, cervical spine of the neck, all negative for significant injuries. IV Keppra was given. Prescription refill of your Keppra sent to your local pharmacy. Take your antiseizure medications as directed. Antibiotic ointment applied to your abrasions of the face. Continue [id number] antibiotic ointment twice daily. Recheck facial abrasions if not improving or developing redness with your regular doctor early next week. Return earlier to this/nearest emergency department for any change worsening symptoms or any concerns prior. Prescriptions: New levetiracetam [Keppra] 500 mg tablet 500 mg PO BID Qty: 60 0RF No Action cephalexin 500 mg capsule 500 mg PO QID Qty: 40 0RF sulfamethoxazole-trimethoprim [Bactrim DS] 800-160 mg tablet 1 tab PO BID Qty: 14 0RF albuterol sulfate 90 mcg/actuation HFA aerosol inhaler 1 puff inhalation QID PRN (Reason: shortness of breath or wheezing) Qty: 8.5 3RF levetiracetam [Keppra] 500 mg tablet 500 mg PO BID Qty: 60 0RF ciprofloxacin HCl [Cipro] 500 mg tablet 500 mg PO BID Qty: 20 0RF Referrals: Miscellaneous,Doctor, MD [Primary Care Provider] - Stand Alone Forms: Patient Portal/API/Survey
--- NOTE | 2024-11-01 16:46 | EKG_ITS ---
[facility] [address] [place] [address] Test Date: 2024-11-01 Pat Name: Dorothy Mayers Department: [facility] Room: Gender: Female [facility]: : 1970 Requested By: Order Number: [id number] Reading MD: Boris Quick MD Measurements Intervals [place] Rate: 81 P: 52 TN: 162 QRS: -56 QRSD: 112 T: 60 QT: 428 QTc: 497 Interpretive Statements Normal sinus rhythm Pulmonary disease pattern Right bundle branch block Left anterior fascicular block Bifascicular block Minimal voltage criteria for LVH, may be normal variant ( R in aVL ) Septal infarct , age undetermined Electronically Signed On 11-01-2024 17:27:44 PDT by Boris Quick MD
[2024-11-01 16:56] LABS: Add Manual Diff / Slide Review NO; Basophils Absolute Auto 100 /uL (0-100); Basophils Percent Auto 0.8 % (0-2); Eosinophils Absolute Auto 200 /uL (0-450); Eosinophils Percent Auto 2.4 % (2-4); Hematocrit 42.2 % (36-46); Hemoglobin 13.9 g/dL (12.0-16.0); Lymphocytes Absolute Auto 3500 /uL (1100-4500); Lymphocytes Percent Auto 40.7 % (25-40); Mean Corpuscular HGB Conc 32.9 % (30-36); Mean Corpuscular Hemoglobin 29.6 PG (26-34); Mean Corpuscular Volume 90.2 fL (80-100); Monocytes Absolute Auto 700 /uL (0-900); Monocytes Percent Auto 8.3 % (3-14); Neutrophils Absolute Auto 4100 /uL (1500-7000); Neutrophils Percent Auto 47.8 % (50-75); Platelet Count 332 X10^3/uL (150-400); Red Blood Cell Count 4.68 X10^6/uL (4.0-5.2); Red Cell Distribution Width 14.2 % (11.6-14.8); White Blood Cell Count 8.5 X10^3/uL (4.5-11.0)
[2024-11-01 17:06] LABS: Alanine Aminotransferase 29 IU/L (<35); Albumin 4.7 g/dL (3.5-5.0); Albumin Globulin Ratio 1.6 (1.0-2.8); Alkaline Phosphatase 139 U/L (38-126); Aspartate Aminotransferase 42 IU/L (14-36); BUN Creatinine Ratio 22.8 (6-22); Bilirubin Total 0.9 mg/dL (0.2-1.3); Blood Urea Nitrogen 18 mg/dL (7-17); Carbon Dioxide 19 mmol/L (22-32); Chloride 103 mmol/L (98-107); Estimated Glomerular Filt Rate > 60 mL/min (>60); Glucose 129 mg/dL (70-99); HEMOLYSIS 30 (0-50); Potassium 3.6 mmol/L (3.4-5.1); Sodium 137 mmol/L (137-145); Total Protein 7.7 g/dL (6.3-8.2)
[2024-11-01 17:07] VITALS: PULSE 83; O2SAT 98
[2024-11-01 17:07] LABS: Ethanol (ETOH) < 10 mg/dL
[2024-11-01 17:30] VITALS: BP 129/84; PULSE 80; RESP 14; O2SAT 96
[2024-11-01 18:00] VITALS: BP 141/85; PULSE 77; RESP 22; O2SAT 97
[2024-11-01] MEDS: TET,DIPH,PERTUSS(ACELL),VAC/PF 0.5 ML SYRINGE IM (18:05)
[2024-11-01 18:30] VITALS: BP 149/73; PULSE 68; RESP 19; O2SAT 97
[2024-11-01] MEDS: levETIRAcetam 1,000 MG in SODIUM CHLORIDE 0.9% 100 ML 440 MG IV (18:55)
[2024-11-01 19:00] VITALS: BP 154/84; PULSE 71; RESP 14; O2SAT 96
[2024-11-01] MEDS: BACITRACIN OINT 0.9 GM PCKT 1 APPLIC TOP (19:23)
== END 2024-11-01 19:40 | disposition home or self-care (01) ==
PROVIDERS: Emergency Medicine; Emergency Provider Emergency Medicine
DX: S00.81XA Abrasion of other part of head, initial encounter (principal); W18.30XA Fall on same level, unspecified, initial encounter; G40.909 Epilepsy, unspecified, not intractable, without status epilepticus; Z23 Encounter for immunization
CPT/HCPCS: 70450; 70486; 72125; 80053; 80320; 85025; 90471; 93005; 93010; 96365; 99284; 90715; J1953